=== PATIENT | female | born 1955 | race Caucasian/White ===

== ENCOUNTER → 2016-03-22 | Outpatient (CLI) | payer OTHER ==
[~2016-03-22] MED LIST: AZITTAB PO; CITA10TA4 PO; CITA20TA4 PO; FLUT1INH INH; FLUT50SP45; MONT1TAB3 PO; NAPR1TAB9 PO; OXYC-57 PO; PRED20TA PO; SYMIN160 INH; TIOT1AER2 INH; VNTHFA/IN INH
--- NOTE | 2016-03-23 06:39 | PAP/PSG TECHNICIAN REPORT ---
[facility] Chore Tender Polysomnogram Report Study name: None Report date: 03/23/2016 Study date: 03/22/2016 Referring Physician: Magdaleno Mena Pulmonary Name: CORBY MILAN Interpreting Physician: Magdaleno Mena D.O. Date of : 1955 Chore Tender: Pretty Alcaraz, PSGT. Sex: Female Age: 60 StudyType: PSG Weight: 161 lbs Height: 60 years, Height 5' 1" Neck Circum:15.5 inches BMI: 30.42 Medications: Citalopram 20 mg, Spiriva Handi Haler, Symbicort 160-4.5 mcg, ventilin HFA. Patient History 60 YR. OLD FEMALE IN ROOM # 7, PRESENTS TONIGHT FOR A DIAGNOSTIC TITRATION SLEEP STUDY, DHE HAD A BASELINE DONE 12/19 AND HAD AN AHI OF 15.7. Parameters Monitored NPSG: E1-M2, E2-M1, Fp1-M2, Fp2-M1, F3-M2, F4-M2, F4-M1, C3-M2, C4-M2, C4-M1, O1-M2, O2-M2, O2-M1, T3-M2, T4-M1, P3-M2, P4-M1, CHIN1, CHIN2, HR, EKG, Legs, PFLOW, SNOR, FLOW, CFLOW, Tidal Volume, THOR, ABDO, SpO2, PLTH, CPRESS, ETCO2 Wave, ETCO2, pH Sleep Architecture Sleep Stages Time at Lights Off 9:47:12 PM STAGES Time (min.) TST (%) Time at Lights On 5:36:12 AM Wake 48.0 -- Total Recording Time (TRT) 470.50 min. N1 19.5 5 Total Sleep Period (TSP) 439.0 min. N2 287.5 68 Total Sleep Time (TST) 421.0min. N3 7.0 2 Awake Time 48.0 min. REM 107.0 25 Wake after Sleep Onset 18.0 min. Sleep Efficiency (SE) 90 % Sleep Onset Latency (VAMSHI) 30.0 min. Number of Stage 1 Shifts None Awakenings 6 Stage Changes 40 Number of REM periods 5 REM 107.0 25 REM Latency 141.5 min. NREM 314.0 75 Body Position Analysis Supine Right Left Side Prone Vertical Total Sleep Time (min.) 17.7 245.0 176.0 421.00 0.0 0.0 Total Sleep Time (%) 0% 58% 42% 100 0% N/A% Total Sleep Time REM (min.) 0.0 73.0 34.0 None 0.0 0.0 Total Sleep Time NREM (min.) 0.0 172.0 142.0 None 0.0 0.0 Intermittent Wake (min.) 17.7 3.8 26.5 None 0.0 0.0 Total Sleep Period (%) 0% None None None None None Arousals Myoclonus (PLM) * Events Count Index Events Count Index Spontaneous 56 8 Events Awake (PLMW) 0 0.0 Respiratory 1 0.1 Events Asleep w/ Arousal (PLMA) 9 1.3 PLM 9 1 Events Asleep w/o Arousal (PLMS) 24 3.4 Snoring 4 1 Total Asleep 33 4.7 Total 70 10 Total 33 4 Respiratory Analysis * CA OA MA CH H RERA Total Count 4 1 0 0 6 0 11 Index 0.6 0.1 0.0 0 0.9 0 1.6 Mean Duration 11.3 9.0 0.0 0.00 17.3 0.0 14.3 Longest Duration 14.4 9.0 0.0 0.00 0.0 0.0 28.8 Respiratory Event Summary Total Supine ~Supine Right Left Prone REM NREM Apneas Count 5 N/A 5 2 3 N/A 4 1 Index 0.7 N/A 1 0.5 1.0 N/A 2 0 Hypopneas (4% Desat) Count 6 N/A 6 3 3 N/A 1 5 Index 0.9 N/A 1 0.7 1.0 N/A 0.6 1.0 Apneas & All Hypopneas Count 11 N/A 11 5 6 N/A 5 6 Index 1.6 N/A 2 1 2 N/A 2.8 1.1 Respiratory Events (Staff Midwife+All Hyp+RERA) Count 11 N/A 11 5 6 N/A 5 6 Index 1.6 N/A 2 1.2 2.0 N/A 2.8 1.1 Respiratory Related Arousal Count 1 N/A 1 1 0 N/A 0 1 Index 0.1 N/A 0 0 0 N/A 0 0 Snoring Analysis Supine Right Left Prone REM NREM Total Snore duration 2.4 min Snores count N/A 26 28 N/A 17 37 54 Snore mean duration 2.7 Sec Snores index N/A 6 10 N/A 9.5 7.1 7.7 TST with snoring (%) 0.6% Desaturation Event Summary: Minimum %SpO2 Event Count Mean/Min/Max Duration(sec.) Desaturation Index % Time In Bed > 90 14 25.1 / 10.3 / 53.0 2.5 73.0 86 - 90 3 19.5 / 4.3 / 32.3 1.4 27.0 81 - 85 0 N/A 0.0 0.0 76 - 80 0 N/A 0.0 0.0 71 - 75 0 N/A 0.0 0.0 66 - 70 0 N/A 0.0 0.0 61 - 65 0 N/A 0.0 0.0 56 - 60 0 N/A 0.0 0.0 51 - 55 0 N/A 0.0 0.0 < 50 0 N/A 0.0 0.0 Total REM NREM Awake <50% 0.0 min. 0.0 min. 0.0 min. 0.0 min. 51 - 60% 0.0 min. 0.0 min. 0.0 min. 0.0 min. 61 - 70% 0.0 min. 0.0 min. 0.0 min. 0.0 min. 71 - 80% 0.0 min. 0.0 min. 0.0 min. 0.0 min. 81 - 90% 126.3 min. 24.9 min. 81.0 min. 20.5 min. 91 - 100% 342.2 min. 82.1 min. 232.7 min. 27.4 min. Average 91 91 91 91 Minimum SpO2 87 87 88 87 Desaturation Event Index 2.0 4.5 1.5 0.0 # Desat. Events below 89% 4 4 N/A 0 Time(%) with Saturation below 89% 1.9 0.5 0.3 1.1 Time(min.) with Saturation below 89% 9.1 2.6 1.4 5.1 Time (mins) REM (mins) NREM (mins) % of TST SpO2 Below 90% 11 7 N4 10.7 SpO2 Below 88% 2 0 0 0 Heart Rate Analysis Min (bpm) Max (bpm) Average (bpm) Awake 72 127 84 NREM 70 105 82 REM 68 107 83 Overall 68 107 82 Supplemental O2 Values Minimum O2 level: None Value Start Time End Time Chore Tender Comments PAP Study: MS. Milan slept in the right, and left, positions. No cardiac arrhythmia or PLM's noted. No bruxism noted. CPAP was initiated at +4 CMH2O and up-titrated to an optimal level of +9 CMH2O, which nearly eliminated all respiratory events and snoring. A Small [employer] Simplus, was used during titration Ms. Milan awoke to use the restroom zero times during the night. stated, I did not sleep as well as I do when I am in my own bed. It was harder this time. The final report will be interpreted and signed by a sleep physician. The completed physician report will then be placed in the patient medical record. Pt. stated that is was harder to sleep this time with the mask on. She did seem to do well with the mask and titration, her spirit was good coming into this study she was so excited about feeling better from the treatment. would like to use [employer] for her machine and supplies. Therapy Event: Therapy (cm H20) 4 5 6 7 8 9 Total Time at Pressure (min.) 101.6 60.8 51.2 65.6 153.0 36.7 TST at Pressure (min.) 64.6 60.8 45.2 62.6 151.0 36.7 # Periods 1 1 1 1 1 1 Sleep Onset (min.) 30.0 0.0 0.0 0.0 0.0 0.0 REM Onset (min.) N/A N/A 9.0 N/A 7.2 0.0 Sleep Efficiency % 63 100 88 95 98 100 Wakefulness (%) 36.4 0.0 11.7 4.6 1.3 0.0 Wakefulness (min.) 37.0 0.0 6.0 3.0 2.0 0.0 NREM 1 (%) 6.9 3.3 2.9 3.0 4.6 0.0 NREM 1 (min.) 7.0 2.0 1.5 2.0 7.0 0.0 NREM 2 (%) 56.7 85.2 18.9 92.4 50.8 81.6 NREM 2 (min.) 57.6 51.8 9.7 60.6 77.7 30.0 NREM 3 (%) 0.0 11.5 0.0 0.0 0.0 0.0 NREM 3 (min.) 0.0 7.0 0.0 0.0 0.0 0.0 REM (%) 0.0 0.0 66.4 0.0 43.3 18.4 REM (min.) 0.0 0.0 34.0 0.0 66.3 6.7 # Arousals 5 17 11 4 30 3 Arousal Index 4.6 16.8 14.6 3.8 11.9 4.9 # Snore 4 15 9 3 22 1 Snore Index 3.7 14.8 11.9 2.9 8.7 1.6 AHI 0.0 2.0 5.3 0.0 2.0 0.0 AHI Supine N/A N/A N/A N/A N/A N/A AHI Non-Supine 0.0 2.0 5.3 0.0 2.0 0.0 NREM AHI 0.0 2.0 0.0 0.0 2.8 0.0 REM AHI N/A N/A 7.1 N/A 0.9 0.0 RDI 0.0 2.0 5.3 0.0 2.0 0.0 # Obstructive 0 0 0 0 1 0 # Central Ap 0 0 3 0 1 0 # Mixed 0 0 0 0 0 0 # Hypopneas 0 2 1 0 3 0 RERAS 0 0 0 0 0 0 Total Respiratory Events 0 2 4 0 5 0 Time Below SpO2 89.00% (min.) 0.0 0.0 0.6 0.2 3.1 0.0 Mean NREM SpO2 (%) 91 91 91 90 92 92 Mean REM SpO2 (%) N/A N/A 91 N/A 91 93 Mean Sleep SpO2 (%) 91 91 91 90 92 92 Min NREM SpO2 (%) 89 89 89 88 88 91 Min REM SpO2 (%) N/A N/A 87 N/A 88 92 Position Supine (min.) 0.0 0.0 0.0 0.0 0.0 0.0 Position Non-supine (min.) 64.6 60.8 45.2 62.6 151.0 36.7 LM Index Sleep 0.0 3.0 8.0 3.8 7.9 0.0 LM Index NREM 0.0 3.0 16.1 3.8 6.4 0.0 LM Index REM N/A N/A 5.3 N/A 10.0 0.0 Mean Heart Rate (bpm) 81 78 77 85 85 82 Min Heart Rate (bpm) 72 70 68 77 72 75
--- NOTE | 2016-03-28 14:33 | POLYSOMNOGRAPH REPORT ---
The patient underwent an additional nocturnal polysomnogram on 03/22/2016. She carries a history of obstructive sleep apnea with a recent baseline study done in December 2015 revealing an AHI of 15.7. The BMI is 30, neck diameter of 15.5 inches. This study is done to treat the obstructive sleep apnea with CPAP. Total recording time 470.5 minutes. Total sleep period 439 minutes with total sleep time 421 minutes. Wake after sleep onset was 18 minutes with a sleep efficiency of 90%. Sleep onset was a bit prolonged at 30 minutes. There were 40 sleep stage changes, 5 REM periods with REM latency of 141.5 minutes. Sleep stages included 5% N1, 68% N2, 2% N3 and 25% REM sleep. The patient was placed on CPAP of 4 cm of water pressure and eventually was increased to 9 cm of water pressure. There were 70 arousals during this study, 4 with snoring, 9 with limb movements, 1 with respiratory events and 56 for nonspecific reasons. She had 4 episodes of central apnea, 1 episode of obstructive apnea, 6 episodes of hypopnea with no RERA or mixed apneic episodes noted. The AHI is 1.6. She spent 0.6% of the sleep cycle with snoring. Lowest O2 sat was 87% during REM for a minimal amount of time. No significant arrhythmias or bradycardia noted. No bruxism noted. With treatment, the oxygen saturation is 92% with an AHI of 0. This study suggests the patient responds very well to CPAP with a final setting continuous positive airway pressure of 9 cm of water pressure. The patient was treated with a small [employer] and [employer] Simplus mask.
== END | disposition home or self-care (01) ==
LOC: C.NEUR 21:00
PROVIDERS: ATTEND Internal Medicine Pulmonary Disease
DX: G47.33 Obstructive sleep apnea (adult) (pediatric) (principal); J44.9 Chronic obstructive pulmonary disease, unspecified

== ENCOUNTER 2016-05-23 21:36 | Emergency (ER) | payer OTHER ==
[~2016-05-23] VITALS: Ht 154.9 cm; Wt 81.8 kg
[~2016-05-23 21:36] MED LIST changes: -AZITTAB PO; -CITA20TA4 PO; -FLUT1INH INH; -FLUT50SP45; -PRED20TA PO; -TIOT1AER2 INH; -VNTHFA/IN INH
[2016-05-23 22:16] VITALS: TEMP 37.8; Ht 154.9 cm; Wt 81.8 kg
[2016-05-23 22:42] VITALS: O2SAT 95
[2016-05-23] MEDS ORDERED: ALBUT/IPRATROP 3MG/0.5MG NEB 3 ML VIAL INH STA (22:47)
--- NOTE | 2016-05-23 23:02 | EMERGENCY ROOM VISIT NOTE ---
History First contact with patient: 22:33 Chief Complaint: COUGH Stated Complaint: BAD DRY COUGH, SORE THROAT SINUS PAIN Nursing Triage Summary: Patient arrives from triage c/c of a 3 day history of harsh cough, non-productive and malaise. History of COPD. Patient denies any chest pain. She does report some back pain. History of Present Illness The patient is a 61 year old female former smoker w/ hx of COPD who presents to the Emergency Room with complaints of 3 day hx of progressive dry cough, chest discomfort elicited by cough, soar throat, and 2 episodes nausea/vomiting and headache. Patient tried inhaler at home but obtained minimal relief. She denies fever or chills. Denies change in stool. Review of Systems See HPI for pertinent positives & negatives. A total of 10 systems reviewed and were otherwise negative. Past Medical/Surgical History Medical Problems: (1) Asthma Social History Smoking Status: Former Smoker Marital Status: Housing Status: lives with family Occupation Status: employed Current/Historical Medications Scheduled Azithromycin (Zithromax Z-Villa), 0 PO UD Budesonide/Formoterol Fumarate (Symbicort 160/4.5 Inhaler ), Unknown Dose INH BID Citalopram Hydrobromide (Citalopram Hydrobromide), 1 TAB PO DAILY Montelukast Sodium (Singulair), 10 MG PO DAILY Naproxen (Aleve), 660 MG PO 1 TIME Prednisone (Prednisone), 2 TAB PO DAILY Scheduled PRN Oxycodone/Acetaminophen 5MG/325MG (Percocet 5MG/325MG), 1-2 TABS PO Q6 PRN for Pain Allergies Coded Allergies: Morphine (Verified Allergy, Mild, 04/10/09) Physical Exam Vital Signs Date Time Temp Pulse Resp B/P Pulse Ox O2 Delivery O2 Flow Rate FiO2 05/23/16 22:43 91 20 135/68 94 05/23/16 22:42 95 Room Air 05/23/16 22:16 37.8 100 20 149/79 95 Room Air Physical Exam GENERAL: alert, well appearing, well nourished, no distress, non-toxic EYE EXAM: normal conjunctiva, PERRL and EOM's grossly intact OROPHARYNX: no exudate, no erythema, lips, buccal mucosa, and tongue normal and mucous membranes are moist NECK: supple, no nuchal rigidity, no adenopathy, non-tender LUNGS: scattered Lorne. exp. wheeze HEART: no murmurs, S1 normal and S2 normal ABDOMEN: abdomen soft, non-tender, normo-active bowel sounds, no masses, no rebound or guarding. SKIN: no rashes and no bruising UPPER EXTREMITIES: upper extremities are grossly normal. LOWER EXTREMITIES: No pitting edema. Medical Decision & Procedures Medications Administered Medications (Trade) Dose Ordered Sig/Trent Route Start Time Stop Time Status Last Admin Dose Admin Albuterol/ Ipratropium (Duoneb) 3 ml NOW STAT INH 05/23/16 22:47 05/23/16 22:53 DC 05/23/16 22:58 3 ML Prednisone (PredniSONE TAB) 60 mg NOW STAT PO 05/23/16 22:47 05/23/16 22:53 DC 05/23/16 22:59 60 MG Medical Decision 61 yo F former smoker w/ hx of COPD p/w 3 day hx cough, soar throat, n/v, stark. febrile at 37.8, normal O2 saturation with lorne wheeze on exam. Differential diagnoses includes but is not limited to pneumonia, bronchitis, COPD/Asthma exacerbation, pneumothorax, pulmonary embolism, congestive heart failure, acute coronary syndrome Acute Bronchitis with COPD exacerbation -Given nebulizer treatment, Prednisone 60 mg x1, -CXR: preliminary read by me: no acute findings -Given dose of Azithromycin 500 mg -Discharged home on Prednisone 20 mg BID x 4 days, Albuterol Inhaler as needed, Z-Villa -Follow up with PCP within 1-2days Impression Primary Impression: Acute bronchitis Additional Impression: COPD exacerbation Departure Information Dispostion Home / Self-Care Condition GOOD Prescriptions Prednisone (Prednisone) 20 Mg Tab 2 TAB PO DAILY for 4 Days, #8 TAB Prov: Nikhil Alfaro D.O. 05/23/16 Azithromycin (ZITHROMAX Z-VILLA) 250 Mg Tab 0 PO UD, #1 PKT 2 TABS DAY 1, THEN 1 TAB DAILY FOR 4 DAYS Prov: Nikhil Alfaro D.OLaura 05/23/16 Referrals Annel Shaffer PA-C (PCP) Patient Instructions [facility] Resident Tracking Resident Involvement: Resident Care Provided Care Provided: Adult Hospital Medicine Problem Qualifiers Primary Impression: Acute bronchitis Bronchitis organism: unspecified organism Qualified Codes: J20.9 - Acute bronchitis, unspecified
[2016-05-23 23:19] VITALS: BP 127/97
[2016-05-23 23:30] VITALS: PULSE 105; O2SAT 98
[2016-05-23] MEDS ORDERED: PRED20TA PO (23:32)
[2016-05-23] MEDS ORDERED: AZITTAB PO (23:32)
--- NOTE | 2016-05-23 23:42 | EMERGENCY ROOM VISIT NOTE ---
History Report prepared by Debbi: Judy Reynolds Under the Supervision of: Dr. Nikhil Alfaro D.O. First contact with patient: 22:44 Chief Complaint: COUGH Stated Complaint: BAD DRY COUGH, SORE THROAT SINUS PAIN Nursing Triage Summary: Patient arrives from triage c/c of a 3 day history of harsh cough, non-productive and malaise. History of COPD. Patient denies any chest pain. She does report some back pain. History of Present Illness The patient is a 61 year old female who presents to the Emergency Room with complaints of a worsening cough for the past 3 days. She states the cough is "dry and harsh". She has a history of COPD and is a former smoker. She also admits to some burning chest pain with the coughing, as well as shortness of breath,a headache and some recent nausea and vomiting. She also complains of some back pain. 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 A total of 10 systems reviewed and were otherwise negative. Past Medical & Surgical Medical Problems: (1) Asthma Social History Smoking Status: Current Every Day Smoker Alcohol Use: occasionally Drug Use: none Marital Status: Housing Status: lives with family Occupation Status: employed Current/Historical Medications Scheduled Azithromycin (Zithromax Z-Villa), 0 PO UD Budesonide/Formoterol Fumarate (Symbicort 160/4.5 Inhaler ), Unknown Dose INH BID Citalopram Hydrobromide (Citalopram Hydrobromide), 1 TAB PO DAILY Montelukast Sodium (Singulair), 10 MG PO DAILY Naproxen (Aleve), 660 MG PO 1 TIME Prednisone (Prednisone), 2 TAB PO DAILY Scheduled PRN Oxycodone/Acetaminophen 5MG/325MG (Percocet 5MG/325MG), 1-2 TABS PO Q6 PRN for Pain Allergies Coded Allergies: Morphine (Verified Allergy, Mild, 04/10/09) Physical Exam Vital Signs Date Time Temp Pulse Resp B/P Pulse Ox O2 Delivery O2 Flow Rate FiO2 05/23/16 22:43 91 20 135/68 94 05/23/16 22:42 95 Room Air 05/23/16 22:16 37.8 100 20 149/79 95 Room Air Physical Exam CONSTITUTIONAL/VITAL SIGNS: Reviewed / noted above. GENERAL: Non-toxic in appearance. INTEGUMENTARY: Warm, dry, and [place]. HEAD: Normocephalic. EYES: without scleral icterus or trauma. ENT/OROPHARYNX: clear and moist. LYMPHADENOPATHY/NECK: Is supple without lymphadenopathy or meningismus. RESPIRATORY: Expiratory wheezing bilaterally. CARDIOVASCULAR: Regular rate and rhythm. GI/ABDOMEN: Soft and nontender. No organomegaly or pulsatile mass. No rebound or guarding. Normal bowel sounds. EXTREMITIES: Warm and well perfused. BACK: No CVA tenderness. NEUROLOGICAL: Intact without focal deficits. PSYCHIATRIC: normal affect. MUSCULOSKELETAL: Normally developed with good muscle tone. Medical Decision & Procedures ER Provider Diagnostic Interpretation: This X-Ray was reviewed and interpreted by myself as we do not have a radiologist on staff overnight. CHEST X-RAY No acute infiltrate or disease seen on X-Ray. Medications Administered Medications (Trade) Dose Ordered Sig/Trent Route Start Time Stop Time Status Last Admin Dose Admin Albuterol/ Ipratropium (Duoneb) 3 ml NOW STAT INH 05/23/16 22:47 05/23/16 22:53 DC 05/23/16 22:58 3 ML Prednisone (PredniSONE TAB) 60 mg NOW STAT PO 05/23/16 22:47 05/23/16 22:53 DC 05/23/16 22:59 60 MG ED Course 2235: Previous medical records were reviewed. The patient was evaluated in room B3. A complete history and physical examination was performed. 2247: Prednisone 60 mg PO, DuoNeb 3 ml INH. 2330: I reevaluated the patient. She is feeling better. I discussed her results and discharge instructions and she verbalized complete understanding and agreement. Medical Decision Etiologies such as infections, reactive airway disease, pneumonia, pneumothorax , COPD, CHF, cardiac ischemia, pulmonary embolism, musculoskeletal, gastrointestinal, as well as others were entertained. This is a 61-year-old female who presents to the ED with a chief complaint of a cough for the past 3 days as well as some shortness of breath. The patient does report a history of COPD. She states that her cough is nonproductive. She denies any fevers or recent illness. The patient has no additional symptoms. Her physical exam reveals some respiratory wheezing. Her oxygen saturation are 95%. She is no acute distress. Chest x-ray did not show an obvious infiltrate. Because the patient's history and her symptoms, she was started on Zithromax by mouth here. She was also started on prednisone and given a nebulizer treatment. Her symptoms did improve. She was discharged on prednisone and Zithromax. The patient has inhalers at home. She'll return for any worsening or new symptoms and otherwise follow up with her PCP. Impression Primary Impression: Acute bronchitis Additional Impression: Chronic obstructive pulmonary disease Scribe Attestation The scribe's documentation has been prepared under my direction and personally reviewed by me in its entirety. I confirm that the note above accurately reflects all work, treatment, procedures, and medical decision making performed by me. Departure Information Dispostion Home / Self-Care Prescriptions Prednisone (Prednisone) 20 Mg Tab 2 TAB PO DAILY for 4 Days, #8 TAB Prov: Nikhil Alfaro D.O. 05/23/16 Azithromycin (ZITHROMAX Z-VILLA) 250 Mg Tab 0 PO UD, #1 PKT 2 TABS DAY 1, THEN 1 TAB DAILY FOR 4 DAYS Prov: Nikhil Alfaro D.O. 05/23/16 Referrals Annel Shaffer PA-C (PCP) Patient Instructions My [facility] Problem Qualifiers Primary Impression: Acute bronchitis Bronchitis organism: unspecified organism Qualified Codes: J20.9 - Acute bronchitis, unspecified Additional Impression: Chronic obstructive pulmonary disease COPD type: unspecified COPD Qualified Codes: J44.9 - Chronic obstructive pulmonary disease, unspecified
[2016-05-23] MEDS ORDERED: AZITHROMYCIN 250 MG TAB PO ONE (23:45)
--- NOTE | 2016-05-24 06:48 | DIAGNOSTIC IMAGING REPORT ---
CHEST 2 VIEWS ROUTINE CLINICAL HISTORY: SOB, Cough dyspnea COMPARISON STUDY: 07/17/2014 FINDINGS: Increased prominence of the basilar lung markings bilaterally. Mid and upper lungs are considered clear. No evidence for cardiac enlargement. IMPRESSION: Bibasilar parenchymal infiltrates Electronically signed by: Parminder Cardona M.D. 05/24/2016 6:46 AM Dictated Date/Time: 05/24/2016 6:46 AM
[2016-08-03] MEDS ORDERED: FLUT50SP45 (08:45)
[2016-08-03] MEDS ORDERED: TIOT1AER2 INH (08:45)
[2016-08-03] MEDS ORDERED: VNTHFA/IN INH (08:45)
[2016-08-03] MEDS ORDERED: CITA20TA4 PO (08:45)
[2016-08-03] MEDS ORDERED: FLUT1INH INH (08:45)
== END 2016-05-23 23:56 | disposition home or self-care (01) ==
LOC: C.EDB 21:37
DX: J44.0 Chronic obstructive pulmonary disease with (acute) lower respiratory infection (principal); J45.909 Unspecified asthma, uncomplicated; F17.200 Nicotine dependence, unspecified, uncomplicated; Z79.899 Other long term (current) drug therapy; Z87.891 Personal history of nicotine dependence; Z88.5 Allergy status to narcotic agent

== ENCOUNTER → 2016-06-01 | Outpatient (CLI) | payer OTHER ==
[~2016-06-01] MED LIST changes: +AZITTAB PO; +CITA20TA4 PO; +FLUT1INH INH; +FLUT50SP45; +TIOT1AER2 INH; +VNTHFA/IN INH
[2016-06-01 12:41] LABS: BASO % 0.1 %; BASO ABS # 0.01 K/uL (0-0.2); COMPLETE YES; EOS % 0.1 %; HEMATOCRIT 43.1 % (37-47); IG% 0.6 %; LYMPH % 21.5 %; LYMPH ABS # 2.69 K/uL (1.2-3.4); MANUAL MICROSCOPIC REQUIRED? NO; MEAN CELL VOLUME 83.9 fL (80-100); MEAN CORPUSCULAR HEMOGLOBIN 27.8 pg (25-34); MEAN CORPUSCULAR HGB CONC 33.2 g/dl (32-36); MEAN PLATELET VOLUME 10.8 fL (7.4-10.4); MONO % 6.5 %; NEUT % 71.2 %; PLATELET COUNT 228 K/uL (130-400); RED BLOOD COUNT 5.14 M/uL (4.2-5.4); REVIEW REQ? NO; URINE APPEARANCE TURBID (CLEAR); URINE BILIRUBIN NEG (NEG); URINE COLOR YELLOW; URINE EPITHELIAL CELL AUTO >30 /lpf (0-5); URINE NITRITE NEG (NEG); URINE PH 5.5 (4.5-7.5); URINE SPECIFIC GRAVITY 1.028 (1.000-1.030); UROBILINOGEN NEG (NEG); WHITE BLOOD COUNT 12.54 K/uL (4.8-10.8); ZZUR CULT IF INDIC CLEAN CATCH NO
[2016-06-01 13:10] LABS: ALT/SGPT 55 U/L (12-78); AST/SGOT 26 U/L (15-37); BLOOD UREA NITROGEN 11 mg/dl (7-18); BUN/CREATININE RATIO 14.1 (10-20); CALCIUM 8.8 mg/dl (8.5-10.1); CARBON DIOXIDE 24 mmol/L (21-32); CHLORIDE 108 mmol/L (98-107); CREATININE 0.79 mg/dl (0.60-1.20); GLUCOSE 123 mg/dl (70-99); POTASSIUM 3.7 mmol/L (3.5-5.1); SODIUM 140 mmol/L (136-145)
[2016-06-01 13:22] LABS: ALB/GLOB RATIO 0.9 (0.9-2); ALKALINE PHOSPHATASE 58 U/L (45-117); CHOLESTEROL 203 mg/dl (0-200); CHOLESTEROL/HDL RATIO 2.5; HDL CHOLESTEROL 80 mg/dl; LDL CHOLESTEROL CALCULATED 104 mg/dl; THYROID STIMULATING HORMONE 0.523 uIu/ml (0.300-4.500); TRIGLYCERIDES 93 mg/dl (0-150); VERY LOW DENSITY LIPOPROT CALC 19 mg/dl
== END | disposition home or self-care (01) ==
LOC: C.LABBFT 07:48
PROVIDERS: ATTEND Internal Medicine
DX: J44.9 Chronic obstructive pulmonary disease, unspecified (principal); Z13.6 Encounter for screening for cardiovascular disorders

== ENCOUNTER → 2016-06-02 | Outpatient (CLI) | payer OTHER ==
--- NOTE | 2016-06-02 11:09 | DIAGNOSTIC IMAGING REPORT ---
ABDOMINAL ULTRASOUND COMPLETE HISTORY: Pain. Nausea. R11.0 [id number]. COMPARISON: 12/07/2006 FINDINGS: Pancreas: The pancreas demonstrates a normal echotexture. Liver: Unremarkable. Gallbladder: No gallbladder wall thickening. No gallstones. CBD: 4 mm Kidneys: No hydronephrosis. Spleen: Normal in size. Aorta: Normal in caliber. IVC: Patent. IMPRESSION: Normal study. No change from the prior exam. Electronically signed by: Parminder Cardona M.D. 06/02/2016 11:08 AM Dictated Date/Time: 06/02/2016 11:01 AM
== END | disposition home or self-care (01) ==
LOC: C.ULTR 10:24
PROVIDERS: ATTEND Internal Medicine
DX: R11.0 Nausea (principal)

== ENCOUNTER → 2016-06-20 | Outpatient (CLI) | payer OTHER ==
[~2016-06-20] MED LIST changes: -AZITTAB PO; +CYCL10TA6 PO; +DICL50TA3 PO; +DTRSR/2 PO; +HYDR-5688 PO; +IBUP-1450 PO; +OMEP20TA PO; -OXYC-57 PO
--- NOTE | 2016-06-20 07:33 | DIAGNOSTIC IMAGING REPORT ---
CT (CHEST) THORAX WITHOUT WITH COMPUTER-AIDED DETECTION (CAD) CLINICAL HISTORY: LOW DOSE LUNG SCREEN COMPARISON STUDY: Chest 05/23/2016. CT DOSE: 97.93 mGy.cm TECHNIQUE: Low-dose helical CT was acquired without intravenous contrast from lung apices to bases and reconstructed at 2.5 mm every 2 mm. CAD was utilized for this study. FINDINGS: The central airways are patent. Moderate emphysema. No pleural effusions. No pneumothorax. A few bibasilar linear densities likely represent subsegmental atelectasis. No mediastinal or hilar lymphadenopathy. Normal caliber thoracic aorta. The heart is normal in size. The unenhanced liver, spleen, and adrenal glands are unremarkable. IMPRESSION: Moderate emphysema. No suspicious pulmonary nodules. CAD FINDINGS: Overall Lung RADS Category: 1 Lung RADS Management Recommendation: Lung-RADS 1: Continue annual screening in 12 months. Lung RADS Follow Up Date: 2017-06-20 Lung RADS Nodule ID: Electronically signed by: Gabo Hernandez M.D. 06/20/2016 7:31 AM Dictated Date/Time: 06/20/2016 7:26 AM
== END ==
LOC: C.CTS 06:29
PROVIDERS: ATTEND Internal Medicine
DX: Z87.891 Personal history of nicotine dependence (principal)

== ENCOUNTER → 2016-09-01 | Outpatient (CLI) | payer OTHER ==
[~2016-09-01] MED LIST changes: -CITA10TA4 PO; -CYCL10TA6 PO; -DICL50TA3 PO; -DTRSR/2 PO; -HYDR-5688 PO; -IBUP-1450 PO; -OMEP20TA PO; -SYMIN160 INH
--- NOTE | 2016-09-02 12:31 | MAMMOGRAPHY REPORT ---
BILATERAL DIGITAL SCREENING MAMMOGRAM TOMOSYNTHESIS WITH CAD: 09/01/2016 CLINICAL HISTORY: Routine screening. TECHNIQUE: Breast tomosynthesis in addition to standard 2D mammography was performed. Current study was also evaluated with a Computer Aided Detection (CAD) system. COMPARISON: Comparison is made to exams dated: 07/14/2015 mammogram, 01/14/2015 mammogram, 01/02/2015 mammogram, 03/06/1999 mammogram, and 07/21/2015 mammogram - [facility]. BREAST COMPOSITION: There are scattered areas of fibroglandular density in both breasts. FINDINGS: No suspicious masses, calcifications, or areas of architectural distortion are noted in ei ther breast. There has been no significant interval change compared to prior exams. A biopsy marker clip is again noted within the right upper outer quadrant. IMPRESSION: ACR BI-RADS CATEGORY 2: BENIGN There is no mammographic evidence of malignancy. A 1 year screening mammogram is recommended. The pa tient will receive written notification of the results. Approximately 10% of breast cancers are not detected with mammography. A negative mammographic report should not delay biopsy if a clinically suggestive mass is present. Frances Moss M.D. /:09/01/2016 15:19:16 Profile Stitching Machine Operator: Tracey DEVI(Yandy)(Tiana), [facility] letter sent: Normal 1/2 BI-RADS Code: ACR BI-RADS Category 2: Benign
== END | disposition home or self-care (01) ==
LOC: C.MAMM 13:20
PROVIDERS: ATTEND Internal Medicine
DX: Z12.31 Encounter for screening mammogram for malignant neoplasm of breast (principal)

== ENCOUNTER → 2016-09-23 | Outpatient (CLI) | payer OTHER ==
[2016-09-23 17:02] LABS: URINE APPEARANCE CLEAR (CLEAR); URINE BILIRUBIN NEG (NEG); URINE COLOR YELLOW; URINE NITRITE NEG (NEG); UROBILINOGEN NEG (NEG); ZZUR CULT IF INDIC CLEAN CATCH NO
[2016-09-23 17:04] LABS: BASO % 0.5 %; BASO ABS # 0.03 K/uL (0-0.2); COMPLETE YES; EOS % 1.1 %; HEMATOCRIT 43.5 % (37-47); IG% 0.2 %; LYMPH % 39.9 %; LYMPH ABS # 2.65 K/uL (1.2-3.4); MANUAL MICROSCOPIC REQUIRED? NO; MEAN CORPUSCULAR HEMOGLOBIN 28.2 pg (25-34); MEAN CORPUSCULAR HGB CONC 32.4 g/dl (32-36); MEAN PLATELET VOLUME 11.8 fL (7.4-10.4); MONO % 7.5 %; NEUT % 50.8 %; PLATELET COUNT 220 K/uL (130-400); REVIEW REQ? NO; WHITE BLOOD COUNT 6.64 K/uL (4.8-10.8)
[2016-09-23 17:27] LABS: ALT/SGPT 36 U/L (12-78); BLOOD UREA NITROGEN 20 mg/dl (7-18); BUN/CREATININE RATIO 24.8 (10-20); CALCIUM 9.4 mg/dl (8.5-10.1); CARBON DIOXIDE 26 mmol/L (21-32); CHLORIDE 106 mmol/L (98-107); CREATININE 0.81 mg/dl (0.60-1.20); GLUCOSE 109 mg/dl (70-99); POTASSIUM 3.7 mmol/L (3.5-5.1); SODIUM 138 mmol/L (136-145)
[2016-09-23 17:29] LABS: ALB/GLOB RATIO 1.1 (0.9-2); ALKALINE PHOSPHATASE 57 U/L (45-117); AST/SGOT 26 U/L (15-37)
[2016-09-24 07:18] LABS: ESTIMATED AVERAGE GLUCOSE 128 mg/dl; HA1C FLAG Normal (Normal)
--- NOTE | 2016-09-30 14:05 | CODING QUERY MEDICAL NECESSITY ---
CQSUPPORTING DIAGNOSIS NEEDED A supporting diagnosis is required for the test/procedure performed on this patient in order for us to be reimbursed by the patient's insurance. Please provide a supporting diagnosis for the following test/procedure listed below next to the test name along with your signature. *If there is no additional diagnosis for this patient that would support the following test/procedure please document that below next to the test/procedure. Test(s)/Procedure(s) that require a supporting diagnosis: DOS 09/23/16 GLYCATED HEMOGLOBIN TEST Provider Signature: Date: Thank you Jennifer Tatum Health Information Management Once completed, please kindly fax back to [phone] For questions please call [phone]
== END | disposition home or self-care (01) ==
LOC: C.LABBFT 10:42
PROVIDERS: ATTEND Internal Medicine
DX: J44.9 Chronic obstructive pulmonary disease, unspecified (principal); R32 Unspecified urinary incontinence; R73.09 Other abnormal glucose

== ENCOUNTER 2017-01-20 08:17 | Emergency (ER) | payer OTHER, BC ==
[~2017-01-20] VITALS: Ht 154.9 cm; Wt 76.7 kg
[~2017-01-20 08:17] MED LIST changes: +DICL50TA3 PO; +DTRSR/2 PO; +IBUP-1450 PO; +OMEP20TA PO
[2017-01-20 08:21] VITALS: TEMP 36.5; Ht 154.9 cm; Wt 76.7 kg
--- NOTE | 2017-01-20 09:23 | DIAGNOSTIC IMAGING REPORT ---
L-SPINE MIN 4 VIEWS ROUTINE CLINICAL HISTORY: 61 years-old Female presenting with EVAL LBP. TECHNIQUE: Frontal, bilateral oblique, lateral, and coned in lateral views of the lumbar spine were obtained. COMPARISON: 12/04/2015. FINDINGS: Minimal dextrocurvature of the lumbar spine. Normal lumbar lordosis. Vertebral bodies maintain normal height and alignment. Intervertebral disc spaces preserved. Anterior osteophytosis noted at L2-3 and to a lesser degree at L3-4. No radiographic evidence of osseous neural foraminal narrowing or acute fracture or subluxation. Moderate stool burden in the colon. No bowel obstruction. No gross pneumoperitoneum. IMPRESSION: No radiographic evidence of acute osseous injury. Mild degenerative change. Electronically signed by: Cory Candelario M.D. 01/20/2017 9:21 AM Dictated Date/Time: 01/20/2017 9:19 AM
[2017-01-20] MEDS ORDERED: CYCL10TA6 PO (09:59)
[2017-01-20] MEDS ORDERED: HYDR-5688 PO (09:59)
--- NOTE | 2017-01-20 10:01 | EMERGENCY ROOM VISIT NOTE ---
ED Visit Note First contact with patient: 08:28 CHIEF COMPLAINT: Low back pain 2 weeks HISTORY OF PRESENT ILLNESS: Patient is a 61-year-old white female who presents to the emergency department for evaluation of low back pain 2 weeks. She states that she has had pain in her low back since lifting heavy tables at work about 2 weeks ago. She denies any specific injury occurring while she was lifting tables, but noted bilateral low back pain without radiation that started the following morning. She states the tables for roughly 100-150 pounds. She was lifting them with the help of a coworker. She did not feel a snap, pop, nor sustain any direct trauma to the low back. When she woke up the following morning, she was very stiff and sore. She states she couldn't stand up straight, and had difficulty getting out of bed due to the discomfort. She applied heat to the back and took ibuprofen through the weekend. She notified work of her symptoms when she returned to the next business day. She was sent to occupational health, reports that she saw RADHA Hobbs with [facility] on Monday, 01/10. She was referred to physical therapy. She has had 2 sessions of physical therapy this week, it yesterday, and 2 days prior to that. She states that she did stretching exercises, and they did stim. She has had worsening low back pain in the last 2 days. She describes pain across her entire low back, the right worse than the left. There is no radiation into her buttocks, hips or legs. Pain is worse with movement. She rates her discomfort a 10/10 presently. She denies any bowel or bladder incontinence or saddle anesthesias. No numbness, tingling or weakness into the lower extremities. No prior history of back problems or injuries. She was prescribed Voltaren 50 mg twice a day. REVIEW OF SYSTEMS: Review of systems as per HPI. All other systems reviewed were negative. 10 systems reviewed. PMH: Electronic medical records are reviewed and summarized as above/below. See Problem List. SOCIAL HISTORY: Patient lives at home with her . 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 Former smoker. PHYSICAL EXAM: Vital Signs: Reviewed Nurse's notes. CONSTITUTIONAL: Patient is an uncomfortable-appearing 61-year-old white female who is awake and alert and in moderate distress due to her back pain. Who is awake and alert and laying supine on the gurney in moderate distress due to their back pain. There is significant discomfort with position changes. CARDIOVASCULAR: Regular rate and rhythm. Peripheral pulses easily palpable. RESPIRATORY: Breath sounds equal and clear to auscultation without wheezes, rales, or rhonchi heard. Full and equal chest expansion without accessory muscle use or retractions. ABDOMEN: Bowel sounds are present. Abdomen is soft, nontender and nondistended. INTEGUMENTARY: No lesions or rash, normal skin turgor. LYMPH: No lymphadenopathy. SPINE: Examination of the patient's back does not demonstrate any ecchymosis, abrasions or outward signs of trauma. No erythema, increased warmth or induration. She has Physio-tape in place along the lumbar spine. Patient has slight midline discomfort to palpation over the low lumbar spine. She has slight paraspinous muscle tenderness bilaterally, primarily on the right, without focal spasm. There is no pain over the SI joint or the sciatic notch. She does have discomfort out the bilateral PSIS, right worse than left. She has increased pain with range of motion including rotation and flexion. EXTREMITIES: Leg lengths are symmetrical. Negative logroll bilaterally. Normal strength including dorsi-flexion and plantar flexion of the great toes and ankles and flexion and extension of the knees and flexion of the hips. Negative bilateral straight leg raise testing. Lower extremity DTRs are equal and symmetrical bilaterally. Distal pulses are easily palpable. Sensation light touch is intact over the lower extremities bilaterally. EMERGENCY DEPARTMENT COURSE: The patient was seen and evaluated as above. Her old records were reviewed. Lumbar spine x-rays were obtained. Mild degenerative changes were noted. Continued conservative care measures were discussed with the patient. She was advised to take an NSAID in some form, whether it be ibuprofen or Voltaren that she had previously been prescribed. She was also given prescriptions for Flexeril and [place] to use as needed for pain and muscle spasms. She has had increased pain in the last couple of days, in the setting of recently initiating physical therapy, which may be in the short-term, worsening her symptoms. She has otherwise had low back pain after lifting injury about 2 weeks ago without radicular symptoms. I do not suspect acute cord compression, cauda equina syndrome or compressive neuropathy. She does not have any bowel or bladder incontinence. She was advised to follow-up with his compensation as she has scheduled next Monday and to continue physical therapy as scheduled. She was given a note to be out of work until she is rechecked by occupational health next week. Medication reconciliation: I attest that I have personally reviewed the patient' s current medication list. Blood pressure screening : Patient was found to have normal blood pressure on screening and does not require follow-up. Patient was reviewed in the [facility] Prescription Drug Monitoring Program, and there were no red flags noted. L-SPINE MIN 4 VIEWS ROUTINE CLINICAL HISTORY: 61 years-old Female presenting with EVAL LBP. TECHNIQUE: Frontal, bilateral oblique, lateral, and coned in lateral views of the lumbar spine were obtained. COMPARISON: 12/04/2015. FINDINGS: Minimal dextrocurvature of the lumbar spine. Normal lumbar lordosis. Vertebral bodies maintain normal height and alignment. Intervertebral disc spaces preserved. Anterior osteophytosis noted at L2-3 and to a lesser degree at L3-4. No radiographic evidence of osseous neural foraminal narrowing or acute fracture or subluxation. Moderate stool burden in the colon. No bowel obstruction. No gross pneumoperitoneum. IMPRESSION: No radiographic evidence of acute osseous injury. Mild degenerative change. Problem List Medical Problems: (1) Acute bronchitis Status: Resolved (2) Asthma Status: Chronic (3) Back strain Status: Resolved (4) Chronic obstructive pulmonary disease Status: Chronic (5) COPD exacerbation Status: Resolved (6) Cough Status: Resolved (7) Spasm of back muscles Status: Resolved Current/Historical Medications Scheduled Citalopram Hydrobromide (Citalopram Hydrobromide), 1 TAB PO QAM Diclofenac (Voltaren), 50 MG PO BID Fluticasone Furoate-Vilanterol (Breo Ellipta), 1 PUFF INH QAM Fluticasone Propionate (Nasal) (Allergy Nasal [place] 24 Ho), 1 DOSE NA QAM Montelukast Sodium (Singulair), 10 MG PO QAM Naproxen (Aleve), 220 MG PO DAILY Omeprazole (Omeprazole), 1 TAB PO QAM Tiotropium [place] (Spiriva Respimat), 1 PUFF INH QAM Tolterodine Tartrate (Detrol LA), 1 CAP PO BID Scheduled PRN Albuterol Hfa (Ventolin Hfa), 2-4 PUFFS INH Q6H PRN for Shortness of Breath Cyclobenzaprine Hcl (Flexeril), 10 MG PO TID PRN for Muscle Spasms Hydrocodone/Acetaminophen 5MG/325MG ([place] 5MG/325MG), 1-2 TABLETS PO Q4 PRN for Pain Ibuprofen (Motrin), 600 MG PO Q6H PRN for Pain Allergies Coded Allergies: Morphine (Verified Allergy, Mild, SWELLING OF THROAT, RED RASH, 01/20/17) Vital Signs Date Time Temp Pulse Resp B/P (MAP) Pulse Ox O2 Delivery O2 Flow Rate FiO2 01/20/17 10:10 68 18 147/77 98 01/20/17 08:21 36.5 69 17 145/81 97 Room Air Departure Information Impression Primary Impression: Strain of lumbar region Additional Impression: Work related injury Prescriptions Hydrocodone/Acetaminophen 5MG/325MG ([place] 5MG/325MG) Tab 1-2 TABLETS PO Q4 Y for Pain, #20 TAB For Initial Treatment Prov: Shirin Allen PA 01/20/17 Cyclobenzaprine Hcl (FLEXERIL) 10 Mg Tab 10 MG PO TID Y for Muscle Spasms, #30 TAB Prov: Shirin Allen PA 01/20/17 Referrals Zheng Brown M.D. (PCP) Patient Instructions [facility] Additional Instructions Cyclobenzaprine (Flexeril) 10 mg: Take 1 pills 3 times daily as needed for muscle spasms.. Avoid alcohol, operating machinery or dangerous equipment, working on ladders or roofs, DRIVING, or situations where being under the influence may be dangerous. Hydrocodone/Acetaminophen ([place]) 5/325 mg: Take 1-2 pills every four hours for breakthrough pain. Avoid alcohol, operating machinery or dangerous equipment, working on ladders or roofs, DRIVING, or situations where being under the influence may be dangerous. It is recommended to use an [id number] stool softener such as Colace, 100mg twice daily while taking this medication to avoid constipation. Continue Voltaren or Ibuprofen as previously advised. Acetaminophen(Tylenol) may be used for fever or pain. Use 1000mg every six hours as needed. Avoid using more than 3000mg in a 24 hour period. This medication can be taken if you need to drive, work, or perform activities which may be dangerous when taking narcotic pain medication. Rest and avoid heavy lifting until your symptoms resolve and then gradually return to full activity. A good rule of thumb is if it hurts your back to perform a certain activity, then it should be avoided until you are healthy again. A heating pad, warm compresses, or a hot shower may help with tight muscles and can be done several times a day as needed. Continue Physical Therapy. Continue current medications. Return to the ER immediately for any numbness, tingling, severe pain, loss of control of your bowels or bladder, inability to walk, or as needed. Follow up with your worker's compensation physician next week as scheduled for a recheck of your current condition. Problem Qualifiers
[2017-01-20 10:10] VITALS: BP 147/77; PULSE 68; O2SAT 98
== END 2017-01-20 10:12 | disposition home or self-care (01) ==
LOC: C.EDB 08:19
DX: S39.012A Strain of muscle, fascia and tendon of lower back, initial encounter (principal); X50.0XXA Overexertion from strenuous movement or load, initial encounter; Y99.0 Civilian activity done for income or pay; Y93.89 Activity, other specified; Y92.199 Unspecified place in other specified residential institution as the place of occurrence of the external cause; Z87.891 Personal history of nicotine dependence; J45.909 Unspecified asthma, uncomplicated; Z79.899 Other long term (current) drug therapy

== ENCOUNTER → 2017-02-06 | Day surgery (SDC) | payer BC, OTHER ==
[2017-01-19 15:21] VITALS: Ht 154.9 cm; Wt 79.1 kg
[~2017-02-06] VITALS: Ht 154.9 cm; Wt 79.1 kg
[~2017-02-06] MED LIST changes: +HYDR-5688 PO; +LIDOCAINE HCL 2% 2 ML VIAL (20MG/ML) ONE; +MIDAZOLAM HCL 1 MG/ML 2ML VIAL ONE; +ONDANSETRON INJ 2 MG/ML 2 ML VIAL ONE; +PROPOFOL IV EMULSION 10 MG/ML 20 ML VIAL IV ONE; +SODIUM CHLORIDE 0.9% 500ML 500 ML IV ONE
--- NOTE | 2017-02-06 12:34 | Endo History and Physical ---
History & Physical Date of Service: Feb 06, 2017. Chief Complaint: Screening Referring Physician: Dr. Brown History of Present Illness 61 yo CF who presents for screening colonoscopy. Past Surgical History Hx Cardiac Surgery: No Hx Internal Defibrillator: No Hx Pacemaker: No Hx Abdominal Surgery: No Hx Post-Op Nausea and Vomiting: No Hx Cancer Surgery: No Hx Thoracic Surgery: No Hx Orthopedic: Yes (RT ANKLE ORIF, RT RCR) Hx Urinary Tract Surgery: No Family History None Social History Smoking Status: Former Smoker Hx Substance Use: No Hx Alcohol Use: No Allergies Coded Allergies: Morphine (Verified Allergy, Mild, SWELLING OF THROAT, RED RASH, 01/20/17) Current Medications Reported Home Medications Medications Dose Route/Sig Max Daily Dose Days Date Category Dose Instructions [place] 5MG/325MG (Acetaminophen/Hydrocodone Bitart) Tab 1-2 Tablets PO Q4 PRN 01/20/17 Rx For Initial Treatment Voltaren (Diclofenac Sodium) 50 Mg Tabec 50 Mg PO BID 01/19/17 Reported Motrin (Ibuprofen) 600 Mg Tab 600 Mg PO Q6H PRN 01/19/17 Reported TAKE WITH FOOD Detrol LA (Tolterodine Tartrate) 2 Mg Capcr 1 Cap PO BID 01/19/17 Reported Omeprazole 20 Mg Tab 1 Tab PO QAM 01/19/17 Reported Allergy Nasal [place] 24 Ho (Fluticasone Propionate (Nasal)) 50 Mcg/Act Spr 1 Dose NA QAM 08/03/16 Reported Ventolin Hfa (Albuterol) 200 Puffs/62401 Mcg Aers 2-4 Puffs INH Q6H PRN 08/03/16 Reported Spiriva Respimat (Tiotropium [place]) 1.25 Mcg/Act Aer 1 Puff INH QAM 08/03/16 Reported Breo Ellipta (Fluticasone Furoate-Vilanterol) 1 Inh Inh 1 Puff INH QAM 08/03/16 Reported Citalopram Hydrobromide 20 Mg Tab 1 Tab PO QAM 08/03/16 Reported Aleve (Naproxen) 220 Mg Tab 220 Mg PO DAILY 12/04/15 Reported Singulair (Montelukast Sodium) 10 Mg Tab 10 Mg PO QAM 12/04/15 Reported Vital Signs Weight (Kilograms): 79.09 Height (Feet): 5 Height (Inches): 1 Physical Exam General Appearance: WD/WN, no apparent distress Respiratory/Chest: Auscultation: breath sounds normal Cardiovascular: Heart Auscultation: RRR Abdomen: Bowel Sounds: normal Inspection & Palpation: soft, non-distended, no tenderness, guarding & rebound Assessment and Plan Assessment: 61 yo CF who presents for screening colonoscopy. Plan: Proceed with colonoscopy.
--- NOTE | 2017-02-06 13:33 | Discharge Instructions ---
Endoscopy Patient Instructions Date / Procedure(s) Performed Feb 06, 2017. Colonoscopy Allergy Information Coded Allergies: Morphine (Verified Allergy, Mild, SWELLING OF THROAT, RED RASH, 01/20/17) Discharge Date / Findings Feb 06, 2017. Colon polyp Internal hemorrhoids Medication Instructions Stopped Medication(s): Voltaren LD 02/04/17 OK to resume all medications today as prescribed Reported Home Medications Medications Dose Route/Sig Max Daily Dose Days Date Category Dose Instructions [place] 5MG/325MG (Acetaminophen/Hydrocodone Bitart) Tab 1-2 Tablets PO Q4 PRN 01/20/17 Rx For Initial Treatment Voltaren (Diclofenac Sodium) 50 Mg Tabec 50 Mg PO BID 01/19/17 Reported Motrin (Ibuprofen) 600 Mg Tab 600 Mg PO Q6H PRN 01/19/17 Reported TAKE WITH FOOD Detrol LA (Tolterodine Tartrate) 2 Mg Capcr 1 Cap PO BID 01/19/17 Reported Omeprazole 20 Mg Tab 1 Tab PO QAM 01/19/17 Reported Allergy Nasal [place] 24 Ho (Fluticasone Propionate (Nasal)) 50 Mcg/Act Spr 1 Dose NA QAM 08/03/16 Reported Ventolin Hfa (Albuterol) 200 Puffs/27679 Mcg Aers 2-4 Puffs INH Q6H PRN 08/03/16 Reported Spiriva Respimat (Tiotropium [place]) 1.25 Mcg/Act Aer 1 Puff INH QAM 08/03/16 Reported Breo Ellipta (Fluticasone Furoate-Vilanterol) 1 Inh Inh 1 Puff INH QAM 08/03/16 Reported Citalopram Hydrobromide 20 Mg Tab 1 Tab PO QAM 08/03/16 Reported Aleve (Naproxen) 220 Mg Tab 220 Mg PO DAILY 12/04/15 Reported Singulair (Montelukast Sodium) 10 Mg Tab 10 Mg PO QAM 12/04/15 Reported Provider Instructions Activity Restrictions - No exercising or heavy lifting for 24 hours. - Do not drink alcohol the day of the procedure. - Do not drive a car or operate machinery until the day after the procedure. - Do not make any important decisions or sign important papers in 24 hours after the procedure. Following Day: - Return to full activity which may include returning to work/school. Diet Start your diet with liquids and light foods (jello, soup, juice, toast). Then eat your usual diet if not nauseated. Treatment For Common After Affects For mild abdominal pain, bloating, or excessive gas: - Rest - Eat lightly - Lie on right side Follow-Up Information Follow-up with Dr Brown as scheduled Anesthesia Information What You Should Know You have had a procedure that required some medicine to reduce anxiety and discomfort. This treatment is called moderate sedation. After receiving the treatment, you may be sleepy, but you will be able to breathe on your own. The effects of the treatment may last for several hours. Follow these instructions along with Activity/Diet recommendations noted above: * Do NOT do anything where dizziness or clumsiness would be dangerous. * Rest quietly at home today, then you can be up and about tomorrow. * Have a responsible person stay with you the rest of today. * You may have had an I.V. today. If so, you may take the dressing off later today. Recommendations Call your doctor if: * Trouble breathing * Continuous vomiting for more than 24 hours * Temperature above 101 degrees * Severe abdominal pain or bloating * Pain not relieved by pain medicine ordered * There is increased drainage or redness from any incision * A large amount of rectal bleeding greater than 2-3 tablespoons. (If you had a polyp/s removed or have hemorrhoids, a small amount of blood - from the rectum is to be expected.) * You have any unanswered questions or concerns. IN THE EVENT OF A SERIOUS EMERGENCY, GO TO THE NEAREST EMERGENCY ROOM Your discharge instructions were prepared by provider Trae Roque. Patient Instructions Signature Page Marla So Patient (or Guardian) Signature/Date: I have read and understand the instructions given to me by my caregivers. Caregiver/RN/Doctor Signature/Date: The above-named patient and/or guardian has received patient instructions on this date. + Original Patient Signature Page (only) stays with chart. Please make copy for patient.
--- NOTE | 2017-02-06 13:41 | Anesthesiology Progress Note ---
Anesthesia Post Op Note Date & Time Feb 06, 2017 at 13:41 Vital Signs Vital Signs Past 12 Hours Date Time Temp Pulse Resp B/P (MAP) Pulse Ox O2 Delivery O2 Flow Rate FiO2 02/06/17 13:31 81 16 112/63 (79) 95 Room Air 02/06/17 12:49 36.5 74 20 126/59 (81) 97 Room Air Notes Mental Status: alert / awake / arousable, participated in evaluation Pt Amnestic to Procedure: Yes Nausea / Vomiting: adequately controlled Pain: adequately controlled Airway Patency, RR, SpO2: stable & adequate BP & HR: stable & adequate Hydration State: stable & adequate Anesthetic Complications: no major complications apparent
--- NOTE | 2017-02-06 13:42 | GI REPORT ---
Procedure Date: 02/06/2017 1:04 PM Procedure: Colonoscopy Indications: Screening for colorectal malignant neoplasm Medicines: Monitored Anesthesia Care Complications: No immediate complications. Estimated Blood Loss: Estimated blood loss: none. Procedure: Pre-Anesthesia Assessment: - Prior to the procedure, a History and Physical was performed, and patient medications and allergies were reviewed. The patient's tolerance of previous anesthesia was also reviewed. The risks and benefits of the procedure and the sedation options and risks were discussed with the patient. All questions were answered, and informed consent was obtained. Prior Anticoagulants: The patient has taken no previous anticoagulant or antiplatelet agents. ASA Grade Assessment: II - A patient with mild systemic disease. After reviewing the risks and benefits, the patient was deemed in satisfactory condition to undergo the procedure. After I obtained informed consent, the scope was passed under direct vision. Throughout the procedure, the patient's blood pressure, pulse, and oxygen saturations were monitored continuously. The scope was introduced through the anus and advanced to the terminal ileum. The colonoscopy was performed without difficulty. The patient tolerated the procedure well. The quality of the bowel preparation was good. The terminal ileum, ileocecal valve, appendiceal orifice, and rectum were photographed. Findings: The perianal and digital rectal examinations were normal. A 4 mm polyp was found in the cecum. The polyp was sessile. The polyp was removed with a cold snare. Resection and retrieval were complete. Non-bleeding internal hemorrhoids were found during retroflexion. The hemorrhoids were small. Impression: - One 4 mm polyp in the cecum, removed with a cold snare. Resected and retrieved. - Non-bleeding internal hemorrhoids. Recommendation: - Resume previous diet. - Continue present medications. - Repeat colonoscopy for surveillance based on pathology results. - Return to primary care physician as previously scheduled. Trae Roque DO 02/06/2017 1:41:20 PM This report has been signed electronically. Note Initiated On: 02/06/2017 1:04 PM I attest to the content of the Intraoperative Record and orders documented therein, exceptions below
[2017-02-06 14:04] VITALS: BP 144/76; PULSE 72; O2SAT 98
== END | disposition home or self-care (01) ==
LOC: C.GI 12:09
PROVIDERS: ATTEND Internal Medicine
DX: Z12.11 Encounter for screening for malignant neoplasm of colon (principal); D12.0 Benign neoplasm of cecum; K64.8 Other hemorrhoids; Z87.891 Personal history of nicotine dependence

== ENCOUNTER → 2017-02-17 | Outpatient (CLI) | payer BC ==
[~2017-02-17] MED LIST changes: -LIDOCAINE HCL 2% 2 ML VIAL (20MG/ML) ONE; -MIDAZOLAM HCL 1 MG/ML 2ML VIAL ONE; -ONDANSETRON INJ 2 MG/ML 2 ML VIAL ONE; -PROPOFOL IV EMULSION 10 MG/ML 20 ML VIAL IV ONE; -SODIUM CHLORIDE 0.9% 500ML 500 ML IV ONE
[2017-02-17 14:42] LABS: URINE APPEARANCE CLEAR (CLEAR); URINE BILIRUBIN NEG (NEG); URINE COLOR YELLOW; URINE NITRITE NEG (NEG); URINE SPECIFIC GRAVITY 1.013 (1.000-1.030); UROBILINOGEN NEG (NEG)
[2017-02-17 14:45] LABS: MANUAL MICROSCOPIC REQUIRED? NO; REVIEW REQ? NO
== END | disposition home or self-care (01) ==
LOC: C.LABSPEC 13:19
PROVIDERS: ATTEND Obstetrics & Gynecology
DX: R32 Unspecified urinary incontinence (principal)

== ENCOUNTER → 2017-02-17 | Outpatient (CLI) | payer BC | END | disposition home or self-care (01) | LOC: C.PAPS 15:57 | PROVIDERS: ATTEND Obstetrics & Gynecology | DX: Z01.419 Encounter for gynecological examination (general) (routine) without abnormal findings (principal) ==

== ENCOUNTER → 2017-05-08 | Outpatient (CLI) | payer BC ==
[2017-05-08 12:53] LABS: INFLUENZA A PCR Neg for Influ A (NEG); INFLUENZA B PCR Neg for Influ B (NEG)
== END | disposition home or self-care (01) ==
LOC: C.LAB1850 11:06
PROVIDERS: ATTEND Physician Assistant
DX: J01.90 Acute sinusitis, unspecified (principal)

== ENCOUNTER 2017-06-27 14:49 | Emergency (ER) | payer BC ==
[~2017-06-27] VITALS: Ht 154.9 cm; Wt 84.6 kg
[~2017-06-27 14:49] MED LIST changes: -OMEP20TA PO
[2017-06-27 15:00] VITALS: BP 152/78; TEMP 36.9; Ht 154.9 cm; Wt 84.6 kg
[2017-06-27] MEDS ORDERED: OMEP20TA PO (15:18)
[2017-06-27] MEDS ORDERED: KETOROLAC TROMETHAMINE 60 MG/2 ML VIAL IM STA (16:09)
[2017-06-27] MEDS ORDERED: HYDR-5688 PO (16:49)
[2017-06-27] MEDS ORDERED: METH4PAK PO (16:51)
--- NOTE | 2017-06-27 16:51 | EMERGENCY ROOM VISIT NOTE ---
History First contact with patient: 15:04 Chief Complaint: BACK PAIN Stated Complaint: LOWER BACK PAIN History of Present Illness The patient is a 62 year old female who presents to the Emergency Room via private vehicle with complaints of "lower back pain". The patient states that she has been experiencing low back pain since an injury she had at work which occurred in January of this past year. She was seen here at that time and noted that she had x-rays. She followed up with [facility], and saw Dr. Ross as well as Dr. Huber. She has had injections in this region. She states that she was doing okay and had physical therapy with minimal relief. She went back to work last week and now is been experiencing increasing pain. She rates the pain is a 6/10. She points to the right sacroiliac joint as a location of pain. There is minimal radiation down the leg. She notes it is worse with movement and activity. No lower extremity weakness, bowel or bladder incontinence, numbness or tingling in the genital region. It sometimes will disrupt her sleep. She had an appointment a few days ago with orthopedics and notes one coming up next month. This is the same pain she has been experiencing just worse. Review of Systems A complete 10-point Review of Systems was discussed with the patient, with pertinent positives and negatives listed in the History of Present Illness. All remaining Review of Systems questions can be considered negative unless otherwise specified. Past Medical/Surgical History Medical Problems: (1) Acute bronchitis (2) Asthma (3) Back strain (4) Chronic obstructive pulmonary disease (5) COPD exacerbation (6) Cough (7) Spasm of back muscles Social History Smoking Status: Never Smoker Alcohol Use: occasionally Drug Use: none Marital Status: Housing Status: lives with family Occupation Status: employed Current/Historical Medications Scheduled Citalopram Hydrobromide (Citalopram Hydrobromide), 1 TAB PO QAM Fluticasone Furoate-Vilanterol (Breo Ellipta), 1 PUFF INH QAM Methylprednisolone (Medrol Dosepak), 0 PO DAILY Montelukast Sodium (Singulair), 10 MG PO QAM Omeprazole (Omeprazole), 1 TAB PO QAM Tiotropium [place] (Spiriva Respimat), 1 PUFF INH QPM Scheduled PRN Albuterol Hfa (Ventolin Hfa), 2-4 PUFFS INH Q6H PRN for Shortness of Breath Fluticasone Propionate (Nasal) (Allergy Nasal [place] 24 Ho), 1 DOSE NA QAM PRN for Nasal Congestion Hydrocodone/Acetaminophen 5MG/325MG (Napoleon 5MG/325MG), 1-2 TABLET PO Q6 PRN for Pain Physical Exam Vital Signs Date Time Temp Pulse Resp B/P (MAP) Pulse Ox O2 Delivery O2 Flow Rate FiO2 06/27/17 15:00 36.9 67 16 152/78 94 Room Air Physical Exam VITAL SIGNS - Vital signs and nursing notes were reviewed. Stable. Afebrile. GENERAL -62-year-old female appearing her stated age who is in no acute distress. Communicates well with provider and answers questions appropriately. SKIN - Without rashes. No meningeal or petechial rash. HEAD - NC/AT. EYES - PERRL with EOMI bilaterally. Sclera anicteric. EARS - No deformities of external structures noted on gross examination bilaterally. NOSE - Midline and without cyanosis. No epistaxis or purulent drainage noted. MOUTH/OROPHARYNX - Without perioral cyanosis. NECK - Neck with FROM. Supple to palpation. LUNGS - Chest wall symmetric without accessory muscle use, intercostals retractions, or central cyanosis. Normal vesicular breath sounds CTA B/L. No wheezes, rales, or rhonchi appreciated. CARDIAC - RRR with S1/S2. No murmur, rubs, or gallops appreciated. ABDOMEN - Abdominal contour normal without pulsations or visible masses. BS normoactive all four quadrants. No tenderness, palpable masses, hepatosplenomegaly, or ascites noted. EXTREMITIES - No clubbing or peripheral cyanosis. No pretibial edema present. + 5/5 strength noted in UE/LE bilaterally. NEUROLOGIC - Cranial nerves II through XII grossly intact. Sensory intact to light touch throughout. Patellar reflexes +2/4. Patient is able to axial load. There is tenderness overlying the right sacroiliac joint. PSYCH - A&O, and cooperates fully with examiner. Pt is very pleasant and interacts well with examiner. Medical Decision & Procedures Medications Administered Medications (Trade) Dose Ordered Sig/Trent Route Start Time Stop Time Status Last Admin Dose Admin Ketorolac Tromethamine (Toradol Inj) 60 mg NOW STAT IM 06/27/17 16:09 06/27/17 16:11 DC 06/27/17 16:38 60 MG Medical Decision Patient was seen and evaluated as above in room D6. Review was performed of nursing notes and vital signs. After obtaining a thorough history and physical examination the above work up was performed. I did review her previous x-ray and also obtain records from [facility]. She is being treated for sacroiliitis as well as lumbar foraminal stenosis. She is able to ambulate here and there is no evidence of cauda equina syndrome. This is the same pain she has been experiencing since January. She was given Toradol here and a short prescription for Napoleon. She was also given a Medrol Dosepak. No red flags in the [place] drug monitoring system. She is to return with worsening. I suspect she is experiencing an acute exacerbation of her chronic low back pain which stems from increased activity now that she return to work. I do believe this is likely continuing from her initial injury. I do not believe that further imaging today is warranted given that she has documented imaging studies as well as visits with spine. No new injury or trauma. The patient was educated upon management, had questions answered prior to discharge , and was discharged home in good condition. In the evaluation and treatment of this patient the following differential diagnoses were entertained: Cauda equina syndrome, lower extremity disruption, lumbar strain, fracture, dislocation, sacroiliitis, lumbar foraminal stenosis, acute abdominal etiology, among others. Impression Primary Impression: Sacroiliitis Additional Impression: Lumbar foraminal stenosis Departure Information Dispostion Home / Self-Care Condition GOOD Prescriptions Methylprednisolone (MEDROL DOSEPAK) 4 Mg [place] 0 PO DAILY, #1 PKT Prov: Yossi Perez PA-C 06/27/17 Hydrocodone/Acetaminophen 5MG/325MG (Napoleon 5MG/325MG) Tab 1-2 TABLET PO Q6 Y for Pain, #15 TAB For Initial Treatment Prov: Yossi Perez PA-C 06/27/17 Referrals Zheng Brown M.D. (PCP) Patient Instructions My [facility] Additional Instructions You have been treated in the Emergency Department for Back Pain. You have been prescribed NORCO to be used for pain control. This is a narcotic medication. You cannot drive or consume alcohol while on this medicine. This medicine should only be used for pain that cannot be controlled with over-the- counter pain medicines. Please do not take any Tylenol/acetaminophen with the [place]. You have been prescribed a Medrol Dosepak. Take this medication as prescribed. You should take the COMPLETE 6-day course of this medication. This is an anti- inflammatory medicine that will help to minimize your symptoms. For pain control, you can use the following [id number]-[id number] medicines (if >12 yo): - Regular strength (325mg/tab) Tylenol (acetaminophen) 2 tabs every 4-6 hours as needed. Do not exceed 12 tablets in a 24 hour period. Avoid taking more than 3 grams (3000 mg) of Tylenol per day. This includes any other sources of acetaminophen you may take on a regular basis. - Regular strength (200 mg/tab) Advil (ibuprofen) 1-2 tabs every 4-6 hours as needed. Do not exceed a dose of 3200 mg per day. If this is an acute injury, ice can be applied to the area of pain for the first 3 days to help decrease pain and inflammation. After the first 3 days, a heating pad can be used over the area for continued soothing relief. You should schedule a follow-up appointment in 2-3 days with your Primary Care Provider for further evaluation and treatment of your back pain. Return to the Emergency Department if your current symptoms worsen despite treatment course outlined above, or if you develop any of the following symptoms : intractable pain despite aforementioned treatment course, loss of control of your bowel or bladder, numbness or tingling in your groin, or development of a fever. Problem Qualifiers
[2017-06-27 17:07] VITALS: PULSE 92; O2SAT 95
== END 2017-06-27 17:08 | disposition home or self-care (01) ==
LOC: C.EDB 14:50 → C.EDD 17:08
DX: M46.1 Sacroiliitis, not elsewhere classified (principal); M99.73 Connective tissue and disc stenosis of intervertebral foramina of lumbar region; Z87.828 Personal history of other (healed) physical injury and trauma; J44.9 Chronic obstructive pulmonary disease, unspecified; Z79.899 Other long term (current) drug therapy; J45.909 Unspecified asthma, uncomplicated

== ENCOUNTER 2017-07-25 09:20 | Emergency (ER) | payer OTHER, BC ==
[~2017-07-25] VITALS: Ht 154.9 cm; Wt 82.4 kg
[~2017-07-25 09:20] MED LIST changes: -DICL50TA3 PO; -DTRSR/2 PO; -IBUP-1450 PO; -NAPR1TAB9 PO; +OMEP20TA PO
[2017-07-25 09:23] VITALS: TEMP 36.8; Ht 154.9 cm; Wt 82.4 kg
[2017-07-25] MEDS ORDERED: HYDR-5688 PO (10:31)
[2017-07-25] MEDS ORDERED: META1TAB22 PO (10:32)
[2017-07-25 11:04] VITALS: BP 158/88; PULSE 78; O2SAT 100
--- NOTE | 2017-07-25 17:23 | EMERGENCY ROOM VISIT NOTE ---
ED Visit Note First contact with patient: 09:42 Chief Complaint: Lower back pain. History of Present Illness: Ms. So is a 62-year-old white female who ambulates into the ED complaining of lumbar back pain. Historically patient reports she injured her lumbar back last January from a work-related injury of lifting heavy tables. She reports that x-rays were done and were normal. She reports an MRI was done and showed a possible disc injury. She was seen by Dr. Ross and reported that she was not a surgical candidate. She completed a course of physical therapy. Additionally she reports she has been seeing Dr. Huber and reports she has been getting steroid injections in her lumbar spine with her last one being May of this year. Additionally she reports she has been signed off and signed on to return to work multiple times since her injury and has taken at least 6 months off. She was recently reevaluated and signed to go back to work yesterday which he did. Patient reports since working over the last day she has been having increasing bilateral lumbar back pain with slight prominence on the right. She reports she was not doing any heavy lifting/moving or had any falls yesterday. Patient reports she has been having a constant pressure-like pain throughout the L5-S1 area with slight right sided prominence. Intermittent with movement she gets a sharp stabbing sensation. She rates her baseline pressure sensation 4/10 and her intermittent sharp pain 8/10. Additionally her pain worsens with palpation , lumbar spine positional changes, ambulation. She has not identified any alleviating factors related to both pains. She reports she has been prescribed Mobic, narcotics and Flexeril and has had no relief of her discomfort. She denies any associated symptoms including fevers, chills, sweats, skin eruptions, skin color changes, abdominal pain, nausea, vomiting, diarrhea, constipation, rectal bleeding, black/tarry stools, flank pain, urinary symptoms , hematuria, bowel and bladder dysfunctional, genital paresthesias, lower extremity weakness/numbness/tingling. Review of Systems: As noted above in history of present illness. All body systems were reviewed and found to be negative as noted above. Past Medical History: As previously noted, asthma, emphysema, unspecified right ankle and right shoulder surgeries. Current Medications: Medications Dose Route/Sig Max Daily Dose Days Date Category Dose Instructions Omeprazole 20 Mg Tab 1 Tab PO QAM 01/19/17 Reported Allergy Nasal [place] 24 Ho (Fluticasone Propionate (Nasal)) 50 Mcg/Act Spr 1 Dose NA QAM PRN 08/03/16 Reported Ventolin Hfa (Albuterol) 200 Puffs/55673 Mcg Aers 2-4 Puffs INH Q6H PRN 08/03/16 Reported Spiriva Respimat (Tiotropium [place]) 1.25 Mcg/Act Aer 1 Puff INH QPM 08/03/16 Reported Breo Ellipta (Fluticasone Furoate-Vilanterol) 1 Inh Inh 1 Puff INH QAM 08/03/16 Reported Citalopram Hydrobromide 20 Mg Tab 1 Tab PO QAM 08/03/16 Reported Singulair (Montelukast Sodium) 10 Mg Tab 10 Mg PO QAM 12/04/15 Reported Allergies to Medications: Morphine. Social History: Patient is currently employed; she feels safe in her home environment; she denies tobacco and alcohol use. Physical Examination: Vital Signs: Date Time Temp Pulse Resp B/P (MAP) Pulse Ox O2 Delivery O2 Flow Rate FiO2 07/25/17 11:04 78 20 158/88 100 07/25/17 09:23 36.8 76 22 138/75 98 Room Air GENERAL: 62-year-old female in moderate distress due to pain, nontoxic-appearing , afebrile and hemodynamically stable. NEUROLOGICAL: Awake, alert and oriented to person, place and time. Answering questions appropriately and following commands. Normal gait. Good hand eye coordination. No focal motor or sensory deficits. SKIN: Warm, dry and pink. No soft tissue eruptions or trauma noted. HEENT: Atraumatic and normocephalic. BACK: No tenderness over the bony cervical and thoracic spine. Moderate tenderness over the L4 through S3 area without bony deformity, bony crepitus, swelling or ecchymosis. There is also moderate tenderness throughout the lumbar para musculature with prominence on the right with obvious palpable spasm. Decreased range of motion in all movements of the lumbar spine due to pain. Because of body habitus and difficulty with flexion it was unable to perform a reliable straight leg raise test. No CVA tenderness. THORAX: Lungs sounds are clear to auscultation and equal bilaterally with symmetrical chest wall. HEART: Regular rate and rhythm. No gallops, rubs or murmurs are appreciated. ABDOMEN: Obese, soft and nontender. Positive bowel sounds in all quadrants. No guarding, rigidity or organomegaly. LOWER EXTREMITIES: No tenderness over the hips, thighs, knees, lower legs or ankle. 4/5 muscle strength in all movements of the hips, thighs, knees and ankles. 2+ patellar and Achilles deep tendon reflexes intact bilaterally they are slightly decreased on the left. She was able to distinguish light sensations to all dermatomes of the lower extremities. No calf tenderness or cords. No dependent edema. ED Course: Patient is assessed as noted above. Patient's medication list was reviewed. Patient was offered pain medication and refused. Patient was educated about today's findings and instructed on her treatment plan ; she verbalized understanding and agreement with this plan. Clinical Impression: Acute on chronic lumbar back pain. Previous work-related injury. Decision-Making: Initially my differential diagnosis I considered herniated disc , muscle strain, muscle spasm, lumbar fracture, discitis and other causes. Disposition: Patient discharged home in stable condition; prior to departure she was reassessed and subjectively reported she was feeling worse and rated her discomfort 10/10. Plan: Pain control including rest, a prescriptions for Skelaxin, ice, proper lifting and moving techniques and a sliding pain medication scale of ibuprofen, acetaminophen and OxyIR were discussed with the patient. Her name was checked on the state database and no red flags were noted and she was given appropriate narcotic precautions. Patient was encouraged to follow-up with Workmen's Compensation and she was signed off of work until follow-up with Workmen's Compensation. Patient was encouraged return to the ED for worsening pain, fevers, rectal/ genital paresthesias, bowel and bladder dysfunction, lower extremity weakness/ numbness/tingling or any new/concerning symptoms.
== END 2017-07-25 11:06 | disposition home or self-care (01) ==
LOC: C.EDB 09:21
DX: M54.5 Low back pain (principal); Z87.828 Personal history of other (healed) physical injury and trauma

== ENCOUNTER 2017-10-12 18:26 | Emergency (ER) | payer OTHER ==
[~2017-10-12] VITALS: Ht 157.5 cm; Wt 90.9 kg
[~2017-10-12 18:26] MED LIST changes: +ASMANEX INH; -HYDR-5688 PO; -TIOT1AER2 INH; -VNTHFA/IN INH
[2017-10-12 18:33] VITALS: TEMP 36.7; Ht 157.5 cm; Wt 90.9 kg
[2017-10-12] MEDS ORDERED: respimat INH (18:43)
[2017-10-12] MEDS ORDERED: ALBU18002 INH (18:45)
[2017-10-12] MEDS ORDERED: LIDODERM (LIDOCAINE) PATCH 5% TD STA (19:03)
[2017-10-12] MEDS ORDERED: NAPROXEN 250 MG TAB PO STA (19:03)
[2017-10-12] MEDS ORDERED: GABAPENTIN 300 MG CAP PO STA (19:03)
[2017-10-12] MEDS ORDERED: LIDO1PAD2 TD (19:12)
[2017-10-12] MEDS ORDERED: GABA-1219 PO (19:12)
[2017-10-12] MEDS ORDERED: NAPR-22 PO (19:12)
--- NOTE | 2017-10-12 19:15 | EMERGENCY ROOM VISIT NOTE ---
ED Visit Note First contact with patient: 18:36 CHIEF COMPLAINT: Low back pain HISTORY OF PRESENT ILLNESS: This 62-year-old female patient presents to the emergency department, ambulatory, complaining of pain in the low back which began in January. The patient states she injured her back at work and has been having issues ever since. She has been following with Dr. Merchant for chronic pain management and does report getting cortisone injections. For approximately the past 1 week, she has been experiencing a burning, sharp sensation into her but worse with bending and sitting. She is taken no OTC pain medications because "they do not work for me". She has been through physical therapy, and states this made her pain worse. She did have x-rays performed, and states there has been no new injury since these images. She states she contacted Dr. Merchant 3 weeks ago for the increased pain and was given a prescription for prednisone, but states "I do not take that, it makes me mean ". She has been taking muscle relaxers with improvement in spasms, but denies improvement in pain. The pain was gradual in onset, is now constant and worse with movement. The patient notes the pain a 6/10. The patient denies any loss of control of their bowel or bladder functions. There has been no leg numbness or weakness, and no change in sensation. No nausea or vomiting or abdominal pain. No chest pain or shortness of breath. No dysuria or increased urinary frequency. REVIEW OF SYSTEMS: A 10 system review of systems was performed with positives and pertinent negatives listed in the history of present illness. All other systems were reviewed and are negative. ALLERGIES: Morphine MEDICATIONS: Singulair, citalopram, Breo, Nasacort, omeprazole PMH: Allergic rhinitis SOCIAL HISTORY: The patient lives locally with family. She denies drug, alcohol, tobacco use. PHYSICAL EXAM: VITALS: Vitals are noted on the nurse's note and reviewed by myself. Vital signs stable. GENERAL: This is a 62-year-old white female, in no acute distress, nondiaphoretic, well-developed well-nourished. SKIN: The skin was without rashes, erythema, edema, or bruising. Capillary refill less than 2 seconds. NECK: Supple without nuchal rigidity. No cervical spine tenderness. No paraspinous muscle tenderness. HEART: Regular rate and rhythm without murmurs gallops or rubs. LUNGS: Clear to auscultation bilaterally without wheezes, rales or rhonchi. ABDOMEN: Positive bowel sounds x 4. Normal tympanic percussion. Soft, nontender, without masses or organomegaly. Chacon sign negative. MUSCULOSKELETAL: No muscle atrophy, erythema, or edema noted of the back. There is no tenderness over the lumbar spinous processes. There is tenderness over the paraspinous muscles bilaterally. There is pain over the right SI joint. There is no tenderness over the thoracic spine or paraspinous muscles. There are muscle spasms present. The patient is slow to move around with maximum tenderness with sitting from a lying position. Negative bilateral straight leg raise test. NEURO: Patient was alert and oriented to person place and time. Normal sensation to light and sharp touch. Deep tendon reflexes 2+ in the lower extremities. Dorsalis pedis pulse 2+ bilaterally. Strength 5/5 and equal in the bilateral lower extremities. EMERGENCY DEPARTMENT COURSE: The patient was seen and evaluated as above. The patient is not exhibiting any symptoms of cauda equina syndrome or epidural abscess. There has been no new injury, so I do not feel that repeating imaging at this time is necessary. The patient is chronically seeing pain management, and states her pain is consistent with her normal pain, however just slightly more severe. She is given a Lidoderm patch, gabapentin, and naproxen. I encouraged her to follow-up closely outpatient with pain management and her primary care provider. The patient was given prescriptions for the above medications. I did discuss with her the importance of an anti-inflammatory medication. She is adamantly refusing any steroids, so I recommended naproxen twice daily. The patient was agreeable. All questions answered patient satisfaction prior to discharge. Discharge instructions reviewed, the patient was discharged home in good condition. I attest that I have personally reviewed the patient's current medication list. Patient was found to have normal blood pressure on screening and does not require follow-up. Etiologies such as lumbago, sciatica, cauda equina, epidural abscess, osteomyelitis, fracture, aortic disease, metastatic disease, infection, renal colic, gastrointestinal, as well as others were entertained. DIAGNOSIS: Chronic low back pain The chart was completed utilizing [employer] voice recognition software. Grammatical errors, random word insertions, pronoun errors, and incomplete sentences are an occasional consequence of this system due to software limitations, ambient noise, and hardware issues. Any formal questions or concerns about the content, text, or information contained within the body of this dictation should be directly addressed to the provider for clarification. Problem List Medical Problems: (1) Acute bronchitis Status: Resolved (2) Asthma Status: Chronic (3) Back strain Status: Resolved (4) Chronic obstructive pulmonary disease Status: Chronic (5) COPD exacerbation Status: Resolved (6) Cough Status: Resolved (7) Spasm of back muscles Status: Resolved Current/Historical Medications Scheduled Citalopram Hydrobromide (Citalopram Hydrobromide), 20 MG PO QAM Fluticasone Furoate-Vilanterol (Breo Ellipta), 1 PUFF INH QAM Gabapentin (Gabapentin), 1 CAP PO TID Lidocaine (Lidocaine), 1 PATCH TD QD Montelukast Sodium (Singulair), 10 MG PO QAM Naproxen (Naprosyn), 500 MG PO BID Omeprazole (Omeprazole), 20 MG PO QAM [respimat], 1 PUFF INH DAILY Scheduled PRN Albuterol Sulfate (Proair Respiclick), 2 PUFFS INH DAILY PRN for SOB/Wheezing Allergies Coded Allergies: Morphine (Verified Allergy, Mild, SWELLING OF THROAT, RED RASH, 10/12/17) Vital Signs Date Time Temp Pulse Resp B/P (MAP) Pulse Ox O2 Delivery O2 Flow Rate FiO2 10/12/17 19:52 80 20 145/78 95 Room Air 10/12/17 18:33 36.7 83 20 138/65 95 Room Air Medications Administered Medications (Trade) Dose Ordered Sig/Trent Route Start Time Stop Time Status Last Admin Dose Admin Lidocaine (Lidoderm Patch 5%) 1 patch NOW STAT TD 10/12/17 19:03 10/12/17 19:05 DC 10/12/17 19:31 1 PATCH Naproxen (Naprosyn Tab) 500 mg NOW STAT PO 10/12/17 19:03 10/12/17 19:05 DC 10/12/17 19:30 500 MG Departure Information Impression Primary Impression: Strain of lumbar region Additional Impression: Chronic low back pain Dispostion Home / Self-Care Condition GOOD Prescriptions Gabapentin (Gabapentin) 300 Mg Cap 1 CAP PO TID, #90 CAP Prov: Pam Arana, PACarmeloC 8/9/18 Lidocaine (LIDOCAINE) 5 % Pad 1 PATCH TD QD, #30 PATCH apply x 12 hours, then remove x 12 hours Prov: Pam Arana PA-C 10/12/17 Naproxen (Naprosyn) 500 Mg Tab 500 MG PO BID, #60 TAB Prov: Pam Arana PA-C 10/12/17 Referrals Zheng Brown M.D. (PCP) Jonathan Merchant M.D. Patient Instructions ED Low Back Pain Injury, [facility] Additional Instructions You have been treated in the Emergency Department for Back Pain. Use Lidoderm patches as prescribed. No more than 1 patch in 24 hours. apply x 12 hours, then remove x 12 hours Use muscle relaxers you have at home to help with spasms. Use gabapentin as directed. 1 capsule up to 3 times daily. This medication is for nerve pain, and I suspect will help with the burning sensation you are experiencing. Do not take this medication prior to driving, as it may make you fatigued. For pain control, you can use the following [id number] medicines (if >12 yo): Naproxen may be used for fever or pain. Use 500mg every twelve hours as needed. Take with food. Avoid using more than 1000mg in a 24 hour period. Do not use 1000mg per day for more than three consecutive days without physician direction. Prolonged inappropriate use can lead to stomach upset or ulcers. No other NSAIDs while taking this medication. (AND/OR) Acetaminophen(Tylenol) may be used for fever or pain. Use 1000mg every six hours as needed. Avoid using more than 3000mg in a 24 hour period. If this is an acute injury, ice can be applied to the area of pain for the first 3 days to help decrease pain and inflammation. After the first 3 days, a heating pad can be used over the area for continued soothing relief. You should schedule a follow-up appointment in 2-3 days with your Primary Care Provider for further evaluation and treatment of your back pain. Return to the Emergency Department if your current symptoms worsen despite treatment course outlined above, or if you develop any of the following symptoms : intractable pain despite aforementioned treatment course, loss of control of your bowel or bladder, numbness or tingling in your groin, or development of a fever. Problem Qualifiers Primary Impression: Strain of lumbar region Encounter type: initial encounter Qualified Codes: S39.012A - Strain of muscle, fascia and tendon of lower back, initial encounter Additional Impression: Chronic low back pain Back pain laterality: bilateral Sciatica presence: with sciatica Sciatica laterality: bilateral sciatica Qualified Codes: M54.42 - Lumbago with sciatica, left side; M54.41 - Lumbago with sciatica, right side; G89.29 - Other chronic pain
[2017-10-12 19:52] VITALS: BP 145/78; PULSE 80; O2SAT 95
== END 2017-10-12 20:11 | disposition home or self-care (01) ==
LOC: C.EDB 18:27 → C.EDD 20:11
DX: S39.012A Strain of muscle, fascia and tendon of lower back, initial encounter (principal); X58.XXXA Exposure to other specified factors, initial encounter; Y99.0 Civilian activity done for income or pay; M54.5 Low back pain; G89.29 Other chronic pain; J45.909 Unspecified asthma, uncomplicated; J44.9 Chronic obstructive pulmonary disease, unspecified; Z79.52 Long term (current) use of systemic steroids; Z79.899 Other long term (current) drug therapy; Z88.5 Allergy status to narcotic agent

== ENCOUNTER 2021-05-24 18:56 | Inpatient (IN) ==
[2021-05-24] MEDS ORDERED: PIPERACILLIN/TAZOBACTAM 4.5 GM/120 ML BAG IV ONE (21:56)
[2021-05-24] MEDS ORDERED: PIPERACILL/TAZOBAC CONSULT ACTIVE PRN (21:56)
--- NOTE | 2021-05-24 22:15 | Emergency Department Note ---
History of Present Illness General Chief complaint: Skin Problem Stated complaint: PAINFUL LUMP IN R GROIN, NEAR LABIA Time Seen by Provider: 05/24/21 21:43 History of Present Illness Maximum Pain Intensity: 8 This 66-year-old presents to the ER complaining of right labial infection Location: Right labia Quality: Painful Severity: Moderate Duration: Past day Timing: Started yesterday Context: Patient was concerned and came in Modifying factors: better with rest; worse with palpation Patient denies trauma to the area. No shaving. No history of infection to this area. Patient does not monitor her blood sugars with her diabetes. Patient denies chest pain, dyspnea, fevers, vomiting, diarrhea. Home Medications Medication Instructions Recorded Confirmed Type citalopram 20 mg tablet (Celexa) 20 mg PO DAILY #90 tab 06/22/20 05/24/21 Rx montelukast 10 mg tablet 10 mg PO QPM #90 tab 06/22/20 05/24/21 Rx meloxicam 7.5 mg tablet 7.5 mg PO DAILY #90 tab 09/28/20 05/24/21 Rx fluticasone propionate 50 2 spray INTNAS DAILY #15.8 ml 12/14/20 05/24/21 Rx mcg/actuation nasal spray,suspension triamcinolone acetonide 0.1 % 1 applic TOPICAL BID PRN #30 g 12/28/20 05/24/21 Rx topical cream omeprazole 20 mg capsule,delayed 20 mg PO QAM #90 cap 12/29/20 05/24/21 Rx release metformin 500 mg tablet 500 mg PO BID #60 tab 04/23/21 05/24/21 Rx Allergies Allergy/AdvReac Type Severity Reaction Status Date / Time morphine Allergy Intermediate SWELLING Verified 05/24/21 20:30 OF THROAT, RED RASH Past Med/Surg History Medical History (Updated 05/24/21 @ 23:45 by Sara Mcmanus PA-C) Allergic rhinitis Anxiety Asthma Chronic obstructive pulmonary disease Spiriva daily, very rare albuterol use, usually just with muggy weather Current smoker Degenerative disc disease Depression Encounter for immunization Former smoker quit 2002 GERD (gastroesophageal reflux disease) Hiatal hernia Migraine HX LYNNETTE (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, PETS [employer] Osteoarthritis Pulmonary emphysema Schatzki's ring S/P DILATION Urinary incontinence Urinary leakage Surgical History History of ankle surgery RIGHT History of bilateral tubal ligation History of cataract surgery RIGHT/LEFT History of colonoscopy History of esophagogastroduodenoscopy (EGD) WITH DILATION History of repair of rotator cuff RIGHT History of tooth extraction Family History Father Alcoholism Alcohol drinking problem Cardiac disorder Myocardial infarction Mother Alcohol drinking problem COPD (chronic obstructive pulmonary disease) Hypertension Sister Lung disease Denies family history of Ovarian cancer Prostate cancer Breast cancer Colorectal cancer Social History Smoking Status: Former smoker Tobacco Type: Cigarettes Age Started Using Tobacco: 14; Age Quit Using Tobacco: 46; Cigarettes Per Day: 20; Second Hand Exposure: No; Hx Alcohol Use: No Hx Substance Use: No Preferred Language: Irish Communication Ability: Effective Visual Impairment: No Limitations Hearing Ability: Normal Senior Administrative Services Officer Required: No Beliefs That Will Affect Care: None marital status: Single Current Living Situation: Family Current Living Situation Comment: grandson and granddaughter current occupational status: employed and retired current occupation: retired from working at [employer], 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 [employer] How many Children do You have: 3 Feels Safe at Home: Yes Childhood Exposure to Second-Hand Smoke: No Dental Care, Regularly: No Physical Activity Frequency: Does not Exercise Physical Activity Frequency Comment: Exercise limited by physical condition Seatbelt Use: sometimes Sunscreen Use: No Assistive Devices: None Review of Systems A total of 10 systems reviewed and were otherwise negative Physical Exam Vital Signs Vital Signs - 24 hr 05/24/21 19:00 05/24/21 20:32 05/24/21 22:00 Temperature 36.8 C Temperature Source Temporal Artery Scan Pulse Rate 82 Pulse Rate [Finger] 97 H 87 Pulse Rhythm [Finger] Regular Regular Pulse Strength [Finger] Normal Normal Respiratory Rate 18 18 20 Respiratory Effort / Characteristics Non-Labored Spontaneous Non-Labored Spontaneous Non-Labored Spontaneous Respiratory Depth Normal Normal Normal Blood Pressure 160/88 H Blood Pressure [Right Arm] 181/95 H 145/79 H Blood Pressure Mean 112 Blood Pressure Mean [Right Arm] 123 101 Blood Pressure Position Sitting Blood Pressure Position [Right Arm] Lying Pulse Oximetry 92 97 96 Oxygen Delivery Method Room Air Room Air Room Air Sepsis Recent Fever Within 48 Hours No Sepsis New/Unexplained Change in Mental Status No Sepsis Action Taken by Nursing No Action Required 05/25/21 00:00 Temperature Temperature Source Pulse Rate Pulse Rate [Finger] 76 Pulse Rhythm [Finger] Pulse Strength [Finger] Respiratory Rate 20 Respiratory Effort / Characteristics Respiratory Depth Blood Pressure Blood Pressure [Right Arm] 154/71 H Blood Pressure Mean Blood Pressure Mean [Right Arm] 98 Blood Pressure Position Blood Pressure Position [Right Arm] Pulse Oximetry 97 Oxygen Delivery Method Room Air Sepsis Recent Fever Within 48 Hours Sepsis New/Unexplained Change in Mental Status Sepsis Action Taken by Nursing VITALS: Vitals are noted on the nurse's note and reviewed by myself. Vital signs stable. GENERAL: Pleasant elderly female, in no acute distress, nondiaphoretic, well- developed well-nourished. SKIN: Right groin labial area erythematous tender to palpation extending to the buttock and part of the perineum, the rest of the skin was without rashes, erythema, edema, or bruising. There is no tenting of the skin. Capillary reflex less than 2 seconds. HEAD: Normocephalic atraumatic. EARS: External auditory canals clear, EYES: Pupils equal round and reactive to light and accommodation. Conjunctivae without injection, sclerae without icterus. Extraocular movements intact. NOSE: Patent, turbinates without inflammation or discharge. MOUTH: Mucous membranes moist. Pharynx without erythema or exudate. Uvula midline. Airway patent. Tongue does not deviate. NECK: Supple without nuchal rigidity. No lymphadenopathy. No thyromegaly. Cervical spine is nontender. No JVD. HEART: Regular rate and rhythm LUNGS: Clear to auscultation bilaterally without wheezes, rales or rhonchi. No retractions or accessory muscle use. ABDOMEN: Positive bowel sounds x 4. Normal tympanic percussion. Soft, nontender, without masses or organomegaly. Chacon sign negative. No guarding or rebound tenderness. No CVA tenderness exam: Right groin area erythematous and edematous concerning for infection extended to the perineum in the buttock region, nurse was present. No Bartholin's abscess. No [place]'s abscess. MUSCULOSKELETAL: No muscle atrophy, erythema, or edema noted. NEURO: Patient was alert and oriented to person place and time. Normal sensation to light and sharp touch. No focal neurological deficits. Course Administered Medications Citalopram Hydrobromide (Citalopram 20 Mg Tab) 20 mg PO DAILY [facility] Stop: 06/24/21 08:59 Last Admin: 05/25/21 08:29 Dose: 20 mg Documented by: [id number] Fluticasone Propionate (Fluticasone Propionate Na Spr 16 Gm Btl) 2 sprays NA DAILY [facility] Stop: 06/24/21 08:59 Last Admin: 05/25/21 08:29 Dose: 2 sprays Documented by: [id number] Daptomycin 250 mg/ Syringe 5 mls @ 2.5 mls/min IV Q24H [facility]; Protocol Stop: 06/01/21 03:59 Last Admin: 05/25/21 04:00 Dose: 2.5 mls/min Documented by: [id number] Piperacillin Sod/Tazobactam (Sod 4.5 gm/ Dextrose) 120 mls @ 30 mls/hr IV Q8H [facility]; Protocol Stop: 06/01/21 03:59 Last Infusion: 05/25/21 16:44 Dose: 0 mls/hr Documented by: [id number] Admin: 05/25/21 12:32 Dose: 30 mls/hr Documented by: [id number] Infusion: 05/25/21 08:28 Dose: 0 mls/hr Documented by: [id number] Admin: 05/25/21 03:53 Dose: 30 mls/hr Documented by: [id number] Meloxicam (Meloxicam 7.5 Mg Tab) 7.5 mg PO DAILY [facility] Stop: 06/24/21 08:59 Last Admin: 05/25/21 08:29 Dose: 7.5 mg Documented by: [id number] Discontinued Medications Piperacillin Sod/Tazobactam Sod (Zosyn) 4.5 gm in 120 mls @ 240 mls/hr IV NOW ONE Stop: 05/24/21 22:25 Last Infusion: 05/24/21 23:36 Dose: 0 mls/hr Documented by: [id number] Admin: 05/24/21 22:26 Dose: 240 mls/hr Documented by: [id number] Vancomycin HCl 1,750 mg/ (Sodium Chloride) 535 mls @ 200 mls/hr IV NOW ONE Stop: 05/25/21 02:07 Last Infusion: 05/25/21 03:45 Dose: 0 mls/hr Documented by: [id number] Admin: 05/25/21 01:01 Dose: 200 mls/hr Documented by: [id number] Clindamycin Phosphate 900 mg/ (Dextrose) 56 mls @ 112 mls/hr IV ONE ONE Stop: 05/24/21 23:56 Last Infusion: 05/25/21 01:01 Dose: 0 mls/hr Documented by: [id number] Admin: 05/25/21 00:01 Dose: 112 mls/hr Documented by: [id number] Piperacillin Sod/Tazobactam (Sod 3.375 gm/ Dextrose) 115 mls @ 28.75 mls/hr IV Q8H [facility]; Protocol Stop: 06/01/21 02:12 Last Admin: 05/25/21 04:06 Dose: Not Given Documented by: [id number] Ioversol (Optiray 320 100ml) 93 ml IV ONCE ONE Stop: 05/24/21 22:59 Last Admin: 05/24/21 22:58 Dose: 1 ml Documented by: [id number] Medical Decision Making Medical Records Attestation: I reviewed the patient's medical records. Home Medications Current Medication List: was personally reviewed by me Laboratory Data Attestation: I reviewed the patient's lab results. Result diagrams: 05/24/21 22:08 05/24/21 22:08 Lab Results 05/24/21 05/24/21 05/24/21 Range/Units 22:08 22:08 22:08 WBC 10.05 (4.8-10.8) K/uL RBC 4.78 (4.2-5.4) M/uL Hgb 13.3 (12.0-16.0) g/dL Hct 41.7 (37-47) % MCV 87.2 (80-100) fL MCH 27.8 (25-34) pg MCHC 31.9 L (32-36) g/dL RDW Std Deviation 46.5 H (36.4-46.3) fL RDW Coeff of Levar 14.5 (11.5-14.5) % Plt Count 251 (130-400) K/uL MPV 10.9 H (7.4-10.4) fL Immature Gran % (Auto) 0.2 % Neut % (Auto) 62.6 % Lymph % (Auto) 29.3 % [place] % (Auto) 6.3 % Eos % (Auto) 1.2 % Baso % (Auto) 0.4 % Neut # (Auto) 6.30 (1.4-6.5) K/uL Lymph # (Auto) 2.94 (1.2-3.4) K/uL [place] # (Auto) 0.63 H (0.11-0.59) K/uL Eos # (Auto) 0.12 (0-0.5) K/uL Baso # (Auto) 0.04 (0-0.2) K/uL Immature Gran # (Auto) 0.02 (0.00-0.02) K/uL ESR (0-30) mm/hr Sodium 138 (136-145) mmol/L Potassium 3.7 (3.5-5.1) mmol/L Chloride 105 (98-107) mmol/L Carbon Dioxide 24 (21-32) mmol/L Anion Gap 9 (3-11) BUN 16 (6-23) mg/dl Creatinine 0.70 (0.6-1.2) mg/dl Est Cr Clr Drug Dosing 75.9 ml/min Est GFR ( Amer) 103.2 ml/min Est GFR (Non-Af Amer) 89.0 ml/min BUN/Creatinine Ratio 22.9 H (10-20) Glucose 104 H (70-99(Fasting)) mg/dl Lactate 0.9 (0.4-2.0) mmol/L Calcium 9.2 (8.5-10.1) mg/dl Total Bilirubin 0.4 (0.2-1.0) mg/dl AST 17 (13-39) U/L ALT 15 (7-52) U/L Alkaline Phosphatase 61 (34-104) U/L C-Reactive Protein (0-0.5) mg/dl Total Protein 7.2 (6.0-8.3) gm/dl Albumin 4.1 (3.4-5.0) gm/dl Globulin 3.1 (2.5-4.0) gm/dl Albumin/Globulin Ratio 1.3 (0.9-2) Procalcitonin (0-0.5) ng/ml SARS-CoV-2, RNA, NAAT (NEGATIVE) 05/24/21 05/24/2122 Range/Units 22:08 22:08 22:15 WBC (4.8-10.8) K/uL RBC (4.2-5.4) M/uL Hgb (12.0-16.0) g/dL Hct (37-47) % MCV (80-100) fL MCH (25-34) pg MCHC (32-36) g/dL RDW Std Deviation (36.4-46.3) fL RDW Coeff of Levar (11.5-14.5) % Plt Count (130-400) K/uL MPV (7.4-10.4) fL Immature Gran % (Auto) % Neut % (Auto) % Lymph % (Auto) % [place] % (Auto) % Eos % (Auto) % Baso % (Auto) % Neut # (Auto) (1.4-6.5) K/uL Lymph # (Auto) (1.2-3.4) K/uL [place] # (Auto) (0.11-0.59) K/uL Eos # (Auto) (0-0.5) K/uL Baso # (Auto) (0-0.2) K/uL Immature Gran # (Auto) (0.00-0.02) K/uL ESR 22 (0-30) mm/hr Sodium (136-145) mmol/L Potassium (3.5-5.1) mmol/L Chloride (98-107) mmol/L Carbon Dioxide (21-32) mmol/L Anion Gap (3-11) BUN (6-23) mg/dl Creatinine (0.6-1.2) mg/dl Est Cr Clr Drug Dosing ml/min Est GFR ( Amer) ml/min Est GFR (Non-Af Amer) ml/min BUN/Creatinine Ratio (10-20) Glucose (70-99(Fasting)) mg/dl Lactate (0.4-2.0) mmol/L Calcium (8.5-10.1) mg/dl Total Bilirubin (0.2-1.0) mg/dl AST (13-39) U/L ALT (7-52) U/L Alkaline Phosphatase (34-104) U/L C-Reactive Protein 1.17 H (0-0.5) mg/dl Total Protein (6.0-8.3) gm/dl Albumin (3.4-5.0) gm/dl Globulin (2.5-4.0) gm/dl Albumin/Globulin Ratio (0.9-2) Procalcitonin < 0.05 (0-0.5) ng/ml SARS-CoV-2, RNA, NAAT (NEGATIVE) 05/24/21 Range/Units 22:27 WBC (4.8-10.8) K/uL RBC (4.2-5.4) M/uL Hgb (12.0-16.0) g/dL Hct (37-47) % MCV (80-100) fL MCH (25-34) pg MCHC (32-36) g/dL RDW Std Deviation (36.4-46.3) fL RDW Coeff of Levar (11.5-14.5) % Plt Count (130-400) K/uL MPV (7.4-10.4) fL Immature Gran % (Auto) % Neut % (Auto) % Lymph % (Auto) % [place] % (Auto) % Eos % (Auto) % Baso % (Auto) % Neut # (Auto) (1.4-6.5) K/uL Lymph # (Auto) (1.2-3.4) K/uL [place] # (Auto) (0.11-0.59) K/uL Eos # (Auto) (0-0.5) K/uL Baso # (Auto) (0-0.2) K/uL Immature Gran # (Auto) (0.00-0.02) K/uL ESR (0-30) mm/hr Sodium (136-145) mmol/L Potassium (3.5-5.1) mmol/L Chloride (98-107) mmol/L Carbon Dioxide (21-32) mmol/L Anion Gap (3-11) BUN (6-23) mg/dl Creatinine (0.6-1.2) mg/dl Est Cr Clr Drug Dosing ml/min Est GFR ( Amer) ml/min Est GFR (Non-Af Amer) ml/min BUN/Creatinine Ratio (10-20) Glucose (70-99(Fasting)) mg/dl Lactate (0.4-2.0) mmol/L Calcium (8.5-10.1) mg/dl Total Bilirubin (0.2-1.0) mg/dl AST (13-39) U/L ALT (7-52) U/L Alkaline Phosphatase (34-104) U/L C-Reactive Protein (0-0.5) mg/dl Total Protein (6.0-8.3) gm/dl Albumin (3.4-5.0) gm/dl Globulin (2.5-4.0) gm/dl Albumin/Globulin Ratio (0.9-2) Procalcitonin (0-0.5) ng/ml SARS-CoV-2, RNA, NAAT NEGATIVE (NEGATIVE) Imaging Data Attestation: I personally reviewed and interpreted this imaging study as follows: Radiologist's Impression: Pelvis CT 05/24/21 21:54 CT SCAN OF THE PELVIS WITH IV CONTRAST CLINICAL HISTORY: Right labial/buttock infection. COMPARISON STUDY: Pelvic radiograph dated 11/08/2018. TECHNIQUE: Following the IV administration of 93 cc of Optiray 320, CT scan of the pelvis is performed from the pelvic inlet to the proximal femora. Images are reviewed in the axial, sagittal, and coronal planes. IV contrast was administered without complication. A dose lowering technique was utilized adhering to the principles of ALARA. CT DOSE: 1068.10 mGy.cm FINDINGS: The bladder, uterus, and adnexa are normal as visualized. No intraperitoneal free air or free fluid is seen in the pelvis. The imaged bowel loops show no evidence of obstruction. There is no pelvic sidewall or inguinal adenopathy. The perianal soft tissues are normal in appearance. The skeletal structures are osteopenic. The bony pelvis appears intact. No lytic or blastic lesion is seen. Sclerotic change is noted in the pubic symphysis. The regional musculature is normal and symmetric. There is soft tissue infiltration identified in the right aspect of the labia and perineum. No organized fluid collection is seen to indicate abscess. No soft tissue gas is identified. IMPRESSION: 1. There is soft tissue induration within the right aspect of the labia and perineum typical for cellulitis. Clinical correlation will be required. 2. No organized fluid collection is seen to indicate abscess. 3. Pelvic viscera is normal as imaged. ACT 112: Negative or not required by law. Dictated: 05/25/2021 8:04 AM Transcribed: 05/25/2021 8:13 AM Lisa [id number] Electronically signed by: Campbell Gillette M.D. 05/25/2021 8:16 AM [facility] Narrative Prior records reviewed and summarized as above. Triage Nursing notes reviewed. Additional history obtained from nursing. The patient's history was concerning for swelling and redness of the skin. Differential diagnosis: Etiologies such as cellulitis, abscess, MRSA infection, DVT, necrotizing fasciitis, dermatitis, drug eruption, as well as others were entertained.. Physical examination: The physical examination was consistent with cellulitis ER treatment provided: Zosyn, clinda, vanco On reassessment the patient felt better. Diagnostics interpreted by me: The labs revealed no worrisome leukocytosis, negative procalcitonin Imaging studies: Preliminary Findings Only See Final Report For Complete Findings CT PELVIS: Subcutaneous fat stranding right labia and right aspect of the perineum suggesting cellulitis. No abscess. Normal appendix. Radiologist: Rodney Ayoub M.D. Consultation: A consultation was placed with the hospitalist. The case was discussed and diagnostics were reviewed. The patient was evaluated in the ER for further tr eatment. This appears to be labia and perineum infection. Patient was extensively tender. She is a diabetic. She is written for antibiotics. Medicine was consulted. She will be admitted. By the evaluation outlined above emergent etiologies such as abscess, DVT, as well as others were deemed relatively unlikely. The pt informed about the findings as listed above. All questions were answered and pleased with the treatment. The chart was completed utilizing [employer] Speech voice recognition software. Grammatical errors, random word insertions, pronoun errors, and incomplete se ntences are an occassional consequence of this system due to software limitations, ambient noise, and hardware issues. Any formal questions or concerns about the content, text, or information contained within the body of this dictation should be directly addressed to the physician property management assistant for cla rification. Impression & Plan Cellulitis of perineum, Cellulitis of labia Discharge Plan Visit Data Chief Complaint: Skin Problem Stated Complaint: PAINFUL LUMP IN R GROIN, NEAR LABIA ED Provider: James Cardona ED Midlevel Provider: Sara Mcmanus Discharge Problem: Cellulitis of perineum, Cellulitis of labia Patient Disposition: Admitted As Inpatient Condition: Good Discharge Instructions Interventions: ED Discharge Assessment Last Done: 05/25/21 02:21 Addendum May 25, 2021 18:08 HPI: The patient is a 67 y/o woman with a pmhx of COPD, GERD, migraines, LYNNETTE on CPAP, OA who presents to the emergency department with concern for right labial infection. A/P: CT pelvis demonstrates subcutaneous fat stranding of right labia/perineum c/w cellulitis per preliminary [employer] report. WBC, H/H, platelets wnl. Chemistry without acidosis. IV ABX. Admission. I reviewed the patient's past medical history, medications, and visit nursing notes. I discussed the case with the physician property management assistant, examined the patient, and agree with the findings and plan as documented in RUTH Mcmanus's note.
[2021-05-24 22:16] LABS: Basophils # (auto) 0.04 K/uL (0-0.2); Basophils % (auto) 0.4 %; Eosinophils # (auto) 0.12 K/uL (0-0.5); Eosinophils % (auto) 1.2 %; Hematocrit (blood only) 41.7 % (37-47); Hemoglobin 13.3 g/dL (12.0-16.0); Immature Granulocytes # (auto) 0.02 K/uL (0.00-0.02); Immature Granulocytes % (auto) 0.2 %; Lymphocytes # (auto) 2.94 K/uL (1.2-3.4); Lymphocytes % (auto) 29.3 %; Mean Corpuscular Hemoglobin 27.8 pg (25-34); Mean Corpuscular Hgb Conc 31.9 g/dL (32-36); Mean Corpuscular Volume 87.2 fL (80-100); Mean Platelet Volume 10.9 fL (7.4-10.4); Monocytes # (auto) 0.63 K/uL (0.11-0.59); Monocytes % (auto) 6.3 %; Neutrophils % (auto) 62.6 %; Platelet Count 251 K/uL (130-400); RDW Coefficient of Variation 14.5 % (11.5-14.5); RDW Standard Deviation 46.5 fL (36.4-46.3); Red Blood Count 4.78 M/uL (4.2-5.4); White Blood Count 10.05 K/uL (4.8-10.8)
[2021-05-24 22:35] LABS: Albumin Globulin Ratio 1.3 (0.9-2); Albumin Level 4.1 gm/dl (3.4-5.0); BUN Creatinine Ratio 22.9 (10-20); Bilirubin,Total 0.4 mg/dl (0.2-1.0); Calcium 9.2 mg/dl (8.5-10.1); Creatinine Clr Calc Pharmacy 75.9 ml/min; Est GFR (African American) 103.2 ml/min; Globulin 3.1 gm/dl (2.5-4.0); Potassium 3.7 mmol/L (3.5-5.1); Total Protein 7.2 gm/dl (6.0-8.3)
[2021-05-24] MEDS ORDERED: OPTIRAY 320 100ml IV ONE (22:58)
[2021-05-24] MEDS ORDERED: VANCOMYCIN CONSULT ACTIVE PRN (23:27)
[2021-05-24] MEDS ORDERED: VANCOMYCIN HCL 1,750 MG in SODIUM CHLORIDE 0.9% 500 ML IV ONE (23:27)
[2021-05-24] MEDS ORDERED: CLINDAMYCIN 900 MG in DEXTROSE 5% 50 ML IV ONE (23:27)
--- NOTE | 2021-05-25 00:07 | History & Physical Report ---
Date of Service May 25, 2021 Assessment & Plan (1) Cellulitis of perineum: Plan: Patient afebrile, HD stable, nontoxic in appearance. CT suggestive of cellulitis and stranding. No drainable collection. -Zosyn, Daptomycin -Warm compresses (2) COPD with emphysema: Plan: Chronic. Stable -Continue Singulair (3) GERD (gastroesophageal reflux disease): Plan: Chronic. Stable -Continue Omeprazole History of Present Illness Chief Complaint: labia pain Primary Care Provider: Zheng Brown MD Caroline So is a pleasant 66yo female with history of COPD/Asthma and GERD presenting with painful lump on right labia. Patient noted the lump about 3-4 days ago. She states it feels larger and more tender. No drainage. No fever, chills, sweats, rigors, abdominal pain, nausea, vomiting, diarrhea or constipation. No additional complaints at this time. The swelling rubs against patient's clothes and causes severe pain. Afebrile, HD stable in ER. Allergies Allergy/AdvReac Type Severity Reaction Status Date / Time morphine Allergy Intermediate SWELLING Verified 05/24/21 20:30 OF THROAT, RED RASH Home Medications Medication Instructions Recorded Confirmed Type citalopram 20 mg tablet (Celexa) 20 mg PO DAILY #90 tab 06/22/20 05/24/21 Rx montelukast 10 mg tablet 10 mg PO QPM #90 tab 06/22/20 05/24/21 Rx meloxicam 7.5 mg tablet 7.5 mg PO DAILY #90 tab 09/28/20 05/24/21 Rx fluticasone propionate 50 2 spray INTNAS DAILY #15.8 ml 12/14/20 05/24/21 Rx mcg/actuation nasal spray,suspension triamcinolone acetonide 0.1 % 1 applic TOPICAL BID PRN #30 g 12/28/20 05/24/21 Rx topical cream omeprazole 20 mg capsule,delayed 20 mg PO QAM #90 cap 12/29/20 05/24/21 Rx release metformin 500 mg tablet 500 mg PO BID #60 tab 04/23/21 05/24/21 Rx Past Med/Surg History Medical History (Updated 05/24/21 @ 23:45 by Sara Mcmanus PA-C) Allergic rhinitis Anxiety Asthma Chronic obstructive pulmonary disease Spiriva daily, very rare albuterol use, usually just with muggy weather Current smoker Degenerative disc disease Depression Encounter for immunization Former smoker quit 2002 GERD (gastroesophageal reflux disease) Hiatal hernia Migraine HX LYNNETTE (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, 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[facility] Osteoarthritis Pulmonary emphysema Schatzki's ring S/P DILATION Urinary incontinence Urinary leakage Surgical History History of ankle surgery RIGHT History of bilateral tubal ligation History of cataract surgery RIGHT/LEFT History of colonoscopy History of esophagogastroduodenoscopy (EGD) WITH DILATION History of repair of rotator cuff RIGHT History of tooth extraction Family History Father Alcoholism Alcohol drinking problem Cardiac disorder Myocardial infarction Mother Alcohol drinking problem COPD (chronic obstructive pulmonary disease) Hypertension Sister Lung disease Denies family history of Ovarian cancer Prostate cancer Breast cancer Colorectal cancer Social History Smoking Status: Never smoker Tobacco Type: Cigarettes Age Started Using Tobacco: 14; Age Quit Using Tobacco: 46; Cigarettes Per Day: 20; Second Hand Exposure: Yes ( used to smoke ); Hx Alcohol Use: No Hx Substance Use: No Preferred Language: Yoruba Communication Ability: Effective Visual Impairment: No Limitations Hearing Ability: Normal Manager Office Required: No Beliefs That Will Affect Care: None marital status: Single Current Living Situation: Alone Current Living Situation Comment: is no longer living or around residence current occupational status: employed and retired current occupation: retired from working at [employer], 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 [employer] How many Children do You have: 3 Feels Safe at Home: Yes Childhood Exposure to Second-Hand Smoke: No Dental Care, Regularly: No Physical Activity Frequency: Does not Exercise Physical Activity Frequency Comment: Exercise limited by physical condition Seatbelt Use: sometimes Sunscreen Use: No Assistive Devices: Glasses Review of Systems Review of Systems: All systems reviewed & are unremarkable except as noted in HPI & below Physical Exam Physical Exam: General: patient resting comfortably, NAD, non-toxic in appearance, AA&O x 4 HEENT: NC/AT, PERRL, EOMI, anicteric sclera, conjunctiva without injection, external ear normal to inspection and nontender, nares patent, moist mucus membranes, dentition intact, no oropharyngeal lesions, neck supple, trachea midline, no LAD, no thyromegaly, no JVD Heart: +S1/S2, regular, no m/r/g Lungs: equal air entry bilaterally, no rales/rhonchi/wheezes Abd: +BS, soft, NT/ND, no masses/organomegaly/ascites Ext: warm, 2+ pulses in UE/LE bilaterally, no clubbing/cyanosis or edema Neuro: nonfocal, patient AA&O x 4, speech intact, no facial droop, moving all extremities on command with equal strength 5/5 Swelling noted on right labia with small amount of serosanguinous drainage No crepitus, bullae Perineum exquisitely tender Patient having some difficulty with ambulation due to discomfort No abdominal pain Results & Data Results & Data ([facility]) Vital Signs (Past 12 Hours) Vital Signs Temp Pulse Pulse Resp BP BP Pulse Ox 05/24/21 22:00 87 20 145/79 H 96 05/24/21 20:32 97 H 18 181/95 H 97 05/24/21 19:00 36.8 C 82 18 160/88 H 92 Laboratory Results Laboratory Results WBC 10.05 K/uL (4.8-10.8) 05/24/21 22:08 RBC 4.78 M/uL (4.2-5.4) 05/24/21 22:08 Hgb 13.3 g/dL (12.0-16.0) 05/24/21 22:08 Hct 41.7 % (37-47) 05/24/21 22:08 MCV 87.2 fL (80-100) 05/24/21 22:08 MCH 27.8 pg (25-34) 05/24/21 22:08 MCHC 31.9 g/dL (32-36) L 05/24/21 22:08 RDW Std Deviation 46.5 fL (36.4-46.3) H 05/24/21 22:08 RDW Coeff of Levar 14.5 % (11.5-14.5) 05/24/21 22:08 Plt Count 251 K/uL (130-400) 05/24/21 22:08 MPV 10.9 fL (7.4-10.4) H 05/24/21 22:08 Immature Gran % (Auto) 0.2 % 05/24/21 22:08 Neut % (Auto) 62.6 % 05/24/21 22:08 Lymph % (Auto) 29.3 % 05/24/21 22:08 Josephine % (Auto) 6.3 % 05/24/21 22:08 Eos % (Auto) 1.2 % 05/24/21 22:08 Baso % (Auto) 0.4 % 05/24/21 22:08 Neut # (Auto) 6.30 K/uL (1.4-6.5) 05/24/21 22:08 Lymph # (Auto) 2.94 K/uL (1.2-3.4) 05/24/21 22:08 Josephine # (Auto) 0.63 K/uL (0.11-0.59) H 05/24/21 22:08 Eos # (Auto) 0.12 K/uL (0-0.5) 05/24/21 22:08 Baso # (Auto) 0.04 K/uL (0-0.2) 05/24/21 22:08 Immature Gran # (Auto) 0.02 K/uL (0.00-0.02) 05/24/21 22:08 ESR 22 mm/hr (0-30) 05/24/21 22:08 Sodium 138 mmol/L (136-145) 05/24/21 22:08 Potassium 3.7 mmol/L (3.5-5.1) 05/24/21 22:08 Chloride 105 mmol/L (98-107) 05/24/21 22:08 Carbon Dioxide 24 mmol/L (21-32) 05/24/21 22:08 Anion Gap 9 (3-11) 05/24/21 22:08 BUN 16 mg/dl (6-23) 05/24/21 22:08 Creatinine 0.70 mg/dl (0.6-1.2) 05/24/21 22:08 Est Cr Clr Drug Dosing 75.9 ml/min 05/24/21 22:08 Est GFR ( Amer) 103.2 ml/min 05/24/21 22:08 Est GFR (Non-Af Amer) 89.0 ml/min 05/24/21 22:08 BUN/Creatinine Ratio 22.9 (10-20) H 05/24/21 22:08 Glucose 104 mg/dl (70-99(Fasting)) H 05/24/21 22:08 Lactate 0.9 mmol/L (0.4-2.0) 05/24/21 22:08 Calcium 9.2 mg/dl (8.5-10.1) 05/24/21 22:08 Total Bilirubin 0.4 mg/dl (0.2-1.0) 05/24/21 22:08 AST 17 U/L (13-39) 05/24/21 22:08 ALT 15 U/L (7-52) 05/24/21 22:08 Alkaline Phosphatase 61 U/L (34-104) 05/24/21 22:08 C-Reactive Protein 1.17 mg/dl (0-0.5) H 05/24/21 22:08 Total Protein 7.2 gm/dl (6.0-8.3) 05/24/21 22:08 Albumin 4.1 gm/dl (3.4-5.0) 05/24/21 22:08 Globulin 3.1 gm/dl (2.5-4.0) 05/24/21 22:08 Albumin/Globulin Ratio 1.3 (0.9-2) 05/24/21 22:08 Procalcitonin < 0.05 ng/ml (0-0.5) 05/24/21 22:15 SARS-CoV-2, RNA, NAAT NEGATIVE (NEGATIVE) 05/24/21 22:27 Code Status & VTE Plan VTE Prophylaxis Plan VTE Prophylaxis will be ordered: Yes PG Care Time/CCT Total # of Minutes Spent Total Time Spent with Patient: Total time spent is greater than 50% in coordination of care (as documented) at patient's floor/unit and/or counseling patient: Coding Level of Care Code INT OBSERVATION CARE 50M LVL 2 Diagnoses Cellulitis of perineum L03.315 COPD with emphysema J43.9 GERD (gastroesophageal reflux disease) K21.9
[2021-05-25] MEDS ORDERED: PIPERACILL/TAZOBAC CONSULT ACTIVE PRN (02:13)
[2021-05-25] MEDS ORDERED: ONDANSETRON INJ 2 MG/ML 2 ML VIAL IV PRN (02:13)
[2021-05-25] MEDS ORDERED: PIPERACILLIN/TAZOBACTAM 3.375 GM in DEXTROSE 5% 100 ML IV SCH (02:13)
[2021-05-25] MEDS ORDERED: ACETAMINOPHEN 325 MG TAB PO PRN (02:13)
[2021-05-25] MEDS: PIPERACILLIN/TAZOBACTAM 4.5 GM in DEXTROSE 5% 100 ML IV SCH ×3 (03:53→20:06)
[2021-05-25] MEDS: DAPTOmycin 250 MG in SYRINGE 0 ML IV SCH (04:00)
--- NOTE | 2021-05-25 08:17 | CT Scan Report ---
CT SCAN OF THE PELVIS WITH IV CONTRAST CLINICAL HISTORY: Right labial/buttock infection. COMPARISON STUDY: Pelvic radiograph dated 11/08/2018. TECHNIQUE: Following the IV administration of 93 cc of Optiray 320, CT scan of the pelvis is performe d from the pelvic inlet to the proximal femora. Images are reviewed in the axial, sagittal, and coron al planes. IV contrast was administered without complication. A dose lowering technique was utilized adhering to the principles of ALARA. CT DOSE: 1068.10 mGy.cm FINDINGS: The bladder, uterus, and adnexa are normal as visualized. No intraperitoneal free air or free fluid i s seen in the pelvis. The imaged bowel loops show no evidence of obstruction. There is no pelvic side wall or inguinal adenopathy. The perianal soft tissues are normal in appearance. The skeletal structures are osteopenic. The bony pelvis appears intact. No lytic or blastic lesion is seen. Sclerotic change is noted in the pubic symphysis. The regional musculature is normal and symme tric. There is soft tissue infiltration identified in the right aspect of the labia and perineum. No organized fluid collection is seen to indicate abscess. No soft tissue gas is identified. IMPRESSION: 1. There is soft tissue induration within the right aspect of the labia and perineum typical for cell ulitis. Clinical correlation will be required. 2. No organized fluid collection is seen to indicate abscess. 3. Pelvic viscera is normal as imaged. ACT 112: Negative or not required by law. Dictated: 05/25/2021 8:04 AM Transcribed: 05/25/2021 8:13 AM Lisa [id number] [email or web address]_Homa Electronically signed by: Campbell Gillette M.D. 05/25/2021 8:16 AM
[2021-05-25] MEDS: CITALOPRAM 20 MG TAB PO SCH (08:29)
[2021-05-25] MEDS: MELOXICAM 7.5 MG TAB PO SCH (08:29)
[2021-05-25] MEDS: FLUTICASONE PROPIONATE NA SPR 16 GM BTL SCH (08:29)
--- NOTE | 2021-05-25 13:16 | OB/GYN Consultation ---
Date of Consultation May 25, 2021 History of Present Illness Reason for Consultation: right labial cellulitis Attending Physician: Supa Alejandra History of Present Illness Patient is a 66-year-old 3 para 3-0-0-3 white female who presented to the emergency room yesterday with increasing pain in the lRight labia. She denies any recent scratches or cuts in the skin in that area. She does not shave the perineal area. She denies any drainage at this time, however about 4 days ago she noted a pimple in the right crural fold just above the area that is painful now. She squeezed the pimple and expressed a small amount of white material. Since then the pain has increased and is now expanded to include the area below the initial lesion. She has noted no other drainage from the area. She denies any fever or chills and denies any vaginal discharge or bleeding. CT scan done on admission shows no evidence of a perineal abscess at this time. Of note, she had a MRSA infection involving an abscess on her upper back in August 2020. This abscess had to be opened and drained and packed. She had complete resolution of that abscess. 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 She has had 3 vaginal deliveries without complications. Pap smears have been normal although it has been several years since she has had a Pap smear. Menopause had been uneventful. She has had some difficulty with stress urinary incontinence for which she had a urethral sling placed in 2018. She still has some urinary incontinence but it appears to be urgency type incontinence because Myrbetriq is very effective. She does not take it regularly however because the prescription is $400. On exam, the left labia majora is normal without evidence of redness induration or tenderness. The right labia majora is indurated and erythematous involving the inferior portion of the labia extending to the fourchette. There is point tenderness and a small amount of serosanguineous drainage below the original lesion that she expressed several days ago.It looks like this area may be trying to open spontaneously. A culture of the drainage was obtained. The rest the pelvic exam has been deferred because of patient's discomfort. At this point there is nothing to drain as no abscess can be identified on CT scan. I would continue with the Zosyn and daptomycin as ordered pending the labial culture results. It may be helpful to repeat the CT scan in 48 hours if she is not beginning to feel better to reassess for abscess formation. For patient's comfort we will try to obtain a K pad for her to use in the tender area as needed. We will follow along with you and will reassess her in the morning to see if there is any visible improvement. Allergies Allergy/AdvReac Type Severity Reaction Status Date / Time morphine Allergy Intermediate SWELLING Verified 05/24/21 20:30 OF THROAT, RED RASH Home Medications Medication Instructions Recorded Confirmed Type citalopram 20 mg tablet (Celexa) 20 mg PO DAILY #90 tab 06/22/20 05/24/21 Rx montelukast 10 mg tablet 10 mg PO QPM #90 tab 06/22/20 05/24/21 Rx meloxicam 7.5 mg tablet 7.5 mg PO DAILY #90 tab 09/28/20 05/24/21 Rx fluticasone propionate 50 2 spray INTNAS DAILY #15.8 ml 12/14/20 05/24/21 Rx mcg/actuation nasal spray,suspension triamcinolone acetonide 0.1 % 1 applic TOPICAL BID PRN #30 g 12/28/20 05/24/21 Rx topical cream omeprazole 20 mg capsule,delayed 20 mg PO QAM #90 cap 12/29/20 05/24/21 Rx release metformin 500 mg tablet 500 mg PO BID #60 tab 04/23/21 05/24/21 Rx Patient History Medical History (Updated 05/24/21 @ 23:45 by Sara Mcmanus PA-C) Allergic rhinitis Anxiety Asthma Chronic obstructive pulmonary disease Spiriva daily, very rare albuterol use, usually just with muggy weather Current smoker Degenerative disc disease Depression Encounter for immunization Former smoker quit 2002 GERD (gastroesophageal reflux disease) Hiatal hernia Migraine HX 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 (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, 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[facility] Osteoarthritis Pulmonary emphysema Schatzki's ring S/P DILATION Urinary incontinence Urinary leakage Surgical History History of ankle surgery RIGHT History of bilateral tubal ligation History of cataract surgery RIGHT/LEFT History of colonoscopy History of esophagogastroduodenoscopy (EGD) WITH DILATION History of repair of rotator cuff RIGHT History of tooth extraction Family History Father Alcoholism Alcohol drinking problem Cardiac disorder Myocardial infarction Mother Alcohol drinking problem COPD (chronic obstructive pulmonary disease) Hypertension Sister Lung disease Denies family history of Ovarian cancer Prostate cancer Breast cancer Colorectal cancer Social History Smoking Status: Former smoker Tobacco Type: Cigarettes Age Started Using Tobacco: 14; Age Quit Using Tobacco: 46; Cigarettes Per Day: 20; Second Hand Exposure: No; Hx Alcohol Use: No Hx Substance Use: No Preferred Language: French Communication Ability: Effective Visual Impairment: No Limitations Hearing Ability: Normal Numerical Control Operator Required: No Beliefs That Will Affect Care: None marital status: Single Current Living Situation: Family Current Living Situation Comment: grandson and granddaughter current occupational status: employed and retired current occupation: retired from working at [employer], 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 [employer] How many Children do You have: 3 Feels Safe at Home: Yes Childhood Exposure to Second-Hand Smoke: No Dental Care, Regularly: No Physical Activity Frequency: Does not Exercise Physical Activity Frequency Comment: Exercise limited by physical condition Seatbelt Use: sometimes Sunscreen Use: No Assistive Devices: None Results & Data ([facility]) Vital Signs (Past 12 Hours) Vital Signs Temp Pulse Pulse Resp BP Pulse Ox 05/25/21 07:30 97.5 F L 68 16 127/75 99 05/25/21 03:28 82 21 96 05/25/21 02:14 97.9 F 73 16 153/90 H 95 PG Care Time/CCT Total # of Minutes Spent Total Time Spent with Patient: Total time spent is greater than 50% in coordination of care (as documented) at patient's floor/unit and/or counseling patient: Coding Level of Care Code 98375 Inpt Consult Level 3
[2021-05-25] MEDS: MONTELUKAST SODIUM 10 MG TABLET PO SCH (20:05)
[2021-05-26] MEDS: PIPERACILLIN/TAZOBACTAM 4.5 GM in DEXTROSE 5% 100 ML IV SCH ×3 (04:04→21:00)
[2021-05-26] MEDS: DAPTOmycin 250 MG in SYRINGE 0 ML IV SCH (04:05)
[2021-05-26 06:29] LABS: Basophils # (auto) 0.03 K/uL (0-0.2); Basophils % (auto) 0.5 %; Eosinophils # (auto) 0.12 K/uL (0-0.5); Hematocrit (blood only) 40.9 % (37-47); Hemoglobin 13.1 g/dL (12.0-16.0); Immature Granulocytes # (auto) 0.01 K/uL (0.00-0.02); Immature Granulocytes % (auto) 0.2 %; Lymphocytes # (auto) 2.23 K/uL (1.2-3.4); Lymphocytes % (auto) 36.5 %; Mean Corpuscular Hemoglobin 28.3 pg (25-34); Mean Corpuscular Volume 88.3 fL (80-100); Mean Platelet Volume 10.9 fL (7.4-10.4); Monocytes # (auto) 0.47 K/uL (0.11-0.59); Monocytes % (auto) 7.7 %; Neutrophils # (auto) 3.25 K/uL (1.4-6.5); Neutrophils % (auto) 53.1 %; Platelet Count 234 K/uL (130-400); RDW Coefficient of Variation 14.6 % (11.5-14.5); RDW Standard Deviation 47.2 fL (36.4-46.3); Red Blood Count 4.63 M/uL (4.2-5.4); White Blood Count 6.11 K/uL (4.8-10.8)
--- NOTE | 2021-05-26 06:40 | Gynecologic Progress Note ---
Date of Service May 26, 2021 Assessment & Plan (1) Cellulitis of labia: Plan: cellulitis improving on current antibiotic regimen. would continue for at least 48 hours of IV antbiotics and discharge on oral antibiotic for total of 10 days of antibiotic labial culture is still pending. Admission and Anticipated Discharge Date Admission Date: May 25, 2021 Subjective feeling better now- much less pain. has had some drainage from the area . Review of Systems Review of Systems: All systems reviewed & are unremarkable except as noted in HPI & below Physical Exam Constitutional: WD/WN, vitals as above Psychiatric: A+Ox3, euthymic affect Genitourinary: right labia less indurated and less tender erythema also dec reased Results & Data ([facility]) Vital Signs (Past 12 Hours) Vital Signs Temp Pulse Pulse Resp BP Pulse Ox 05/26/21 03:05 68 12 95 05/25/21 21:49 84 16 95 05/25/21 21:42 97.3 F L 85 16 100/54 L 94 PG Care Time/CCT Total # of Minutes Spent Total Time Spent with Patient: Total time spent is greater than 50% in coordination of care (as documented) at patient's floor/unit and/or counseling patient: Coding Level of Care Code 80343 Office/OBS Consult Lvl 2 Diagnoses Cellulitis of labia N76.2
[2021-05-26 06:46] LABS: Calcium 8.7 mg/dl (8.5-10.1); Creatinine Clr Calc Pharmacy 55.8 ml/min; Est GFR (African American) 71.3 ml/min; Est GFR (Non-African American) 61.5 ml/min; Potassium 4.2 mmol/L (3.5-5.1)
[2021-05-26] MEDS: CITALOPRAM 20 MG TAB PO SCH (07:46)
[2021-05-26] MEDS: FLUTICASONE PROPIONATE NA SPR 16 GM BTL SCH (07:46)
[2021-05-26] MEDS: MELOXICAM 7.5 MG TAB PO SCH (07:46)
[2021-05-26] MEDS: PANTOprazole 40 MG TAB PO SCH (11:51)
--- NOTE | 2021-05-26 20:42 | Hospitalist Progress Note ---
Date of Service May 26, 2021 Assessment & Plan (1) Cellulitis of perineum: Plan: Patient afebrile, HD stable, nontoxic in appearance. CT suggestive of cellulitis and stranding. No drainable collection. -Zosyn, Daptomycin -Warm compresses -Patient will continue on current antibiotics. -will admit patient. plan is to discharge tomorrow on oral antibiotics (2) COPD with emphysema: Plan: Chronic. Stable -Continue Singulair (3) GERD (gastroesophageal reflux disease): Plan: Chronic. Stable -Continue Omeprazole Admission and Anticipated Discharge Date Admission Date: May 25, 2021 Subjective Patient reports mild improvement today. Patient notices discharge and decrease in size of swelling of her right labia majora. Review of Systems Review of Systems: All systems reviewed & are unremarkable except as noted in HPI & below Physical Exam Physical Exam: General: NAD, non-toxic in appearance, AA&O x 4 HEENT: NC/AT, PERRL, EOMI, anicteric sclera, conjunctiva without injection, external ear normal to inspection and nontender, nares patent, moist mucus membranes, dentition intact, no oropharyngeal lesions, neck supple, trachea midline, no LAD, no thyromegaly, no JVD Heart: +S1/S2, regular, no m/r/g Lungs: equal air entry bilaterally, no rales/rhonchi/wheezes Abd: +BS, soft, NT/ND, no masses/organomegaly/ascites Ext: warm, 2+ pulses in UE/LE bilaterally, no clubbing/cyanosis or edema Neuro: nonfocal, patient AA&O x 4, speech intact, no facial droop, moving all extremities on command with equal strength 5/5 Decreased swelling noted on right labia, No crepitus, bullae, decreased tenderness Patient having some difficulty with ambulation due to discomfort No abdominal pain Results & Data Results & Data ([facility]) Vital Signs (Past 12 Hours) Vital Signs Temp Pulse Resp BP Pulse Ox 05/26/21 15:30 36.6 C 68 16 131/74 96 PG Care Time/CCT Total # of Minutes Spent Total Time Spent with Patient: Total time spent is greater than 50% in coordination of care (as documented) at patient's floor/unit and/or counseling patient: Coding Level of Care Code 01334 Subseq Hosp Care Lvl 2 Diagnoses Cellulitis of perineum L03.315 COPD with emphysema J43.9 GERD (gastroesophageal reflux disease) K21.9
[2021-05-26] MEDS: MONTELUKAST SODIUM 10 MG TABLET PO SCH (21:03)
[2021-05-27] MEDS: PIPERACILLIN/TAZOBACTAM 4.5 GM in DEXTROSE 5% 100 ML IV SCH ×2 (03:31→12:27)
[2021-05-27] MEDS: DAPTOmycin 250 MG in SYRINGE 0 ML IV SCH (03:32)
[2021-05-27 06:23] LABS: Hematocrit (blood only) 39.2 % (37-47); Mean Corpuscular Hemoglobin 28.6 pg (25-34); Mean Corpuscular Hgb Conc 33.2 g/dL (32-36); Mean Corpuscular Volume 86.2 fL (80-100); Mean Platelet Volume 10.8 fL (7.4-10.4); Platelet Count 247 K/uL (130-400); RDW Coefficient of Variation 14.6 % (11.5-14.5); RDW Standard Deviation 46.2 fL (36.4-46.3); Red Blood Count 4.55 M/uL (4.2-5.4); White Blood Count 5.77 K/uL (4.8-10.8)
[2021-05-27 06:44] LABS: BUN Creatinine Ratio 25.4 (10-20); Calcium 8.8 mg/dl (8.5-10.1); Creatinine Clr Calc Pharmacy 79.1 ml/min; Est GFR (African American) 104.7 ml/min; Est GFR (Non-African American) 90.3 ml/min; Potassium 3.9 mmol/L (3.5-5.1)
--- NOTE | 2021-05-27 07:26 | Gynecologic Progress Note ---
Date of Service May 27, 2021 Assessment & Plan (1) Cellulitis of labia: Plan: cellulitis improving on current antibiotic regimen. would continue for at least 48 hours of IV antbiotics and discharge on oral antibiotic for total of 10 days of antibiotic labial culture is still pending. I do not see any redness on the exam today I will point out there is an area of tenderness on the right labia posteriorly however this is more consistent with induration I do think the patient probably could go home at this stage the cultures come back as Staphylococcus and I would consider Keflex oral for 10 days to be reasonable please contact us if you have any concerns Admission and Anticipated Discharge Date Admission Date: May 26, 2021 [facility] Vital Signs (Past 12 Hours) Vital Signs Temp Pulse Pulse Resp BP Pulse Ox 05/27/21 03:22 76 16 96 05/26/21 23:52 97.2 F L 89 18 130/69 96 05/26/21 22:20 81 14 96 PG Care Time/CCT Total # of Minutes Spent Total Time Spent with Patient: Total time spent is greater than 50% in coordination of care (as documented) at patient's floor/unit and/or counseling patient: Coding Level of Care Code 07679 Subseq Hosp Care Lvl 2 Diagnoses Cellulitis of labia N76.2
[2021-05-27] MEDS: CITALOPRAM 20 MG TAB PO SCH (09:08)
[2021-05-27] MEDS: FLUTICASONE PROPIONATE NA SPR 16 GM BTL SCH (09:08)
[2021-05-27] MEDS: PANTOprazole 40 MG TAB PO SCH (09:08)
[2021-05-27] MEDS: MELOXICAM 7.5 MG TAB PO SCH (09:08)
--- NOTE | 2021-05-29 07:00 | Discharge Summary ---
Date of Service May 27, 2021 Admission HPI Per Admitting Provider Caroline So is a pleasant 66yo female with history of COPD/Asthma and GERD presenting with painful lump on right labia. Patient noted the lump about 3-4 days ago. She states it feels larger and more tender. No drainage. No fever, chills, sweats, rigors, abdominal pain, nausea, vomiting, diarrhea or constipation. No additional complaints at this time. The swelling rubs against patient's clothes and causes severe pain. Afebrile, HD stable in ER. Principal Diagnosis noted in problem 1 Discharge Exam General: NAD, non-toxic in appearance, AA&O x 4 HEENT: NC/AT, PERRL, EOMI, anicteric sclera, conjunctiva without injection, external ear normal to inspection and nontender, nares patent, moist mucus mem branes, dentition intact, no oropharyngeal lesions, neck supple, trachea midline, no LAD, no thyromegaly, no JVD Heart: +S1/S2, regular, no m/r/g Lungs: equal air entry bilaterally, no rales/rhonchi/wheezes Abd: +BS, soft, NT/ND, no masses/organomegaly/ascites Ext: warm, 2+ pulses in UE/LE bilaterally, no clubbing/cyanosis or edema Neuro: nonfocal, patient AA&O x 4, speech intact, no facial droop, moving all extremities on command with equal strength 5/5 minimal swelling noted on right labia, No crepitus, bullae, mild tenderness (improved) to palpation, area of tenderness has decreased significantly in size Patient having some difficulty with ambulation due to discomfort No abdominal pain Discharge Data Allergies Allergy/AdvReac Type Severity Reaction Status Date / Time morphine Allergy Intermediate SWELLING Verified 05/24/21 20:30 OF THROAT, RED RASH Consultations 05/24/21 23:27 ED Decision to Admit Stat 05/25/21 11:12 Consult Gynecology Routine Ordered Studies 05/24/21 21:54 CT pelvis w/IV con only Urgent Hospital Course (1) Cellulitis of perineum: Patient afebrile, HD stable, nontoxic in appearance. CT suggestive of cellulitis and stranding. No drainable collection. -Patient was treated with Zosyn, Daptomycin -Tolerated Warm compresses and noticed some drainage. -Lesion was bipsided, anc cultured. -grew MRSA, sensitive to bactrim. -inflammation decreased during hospital stay. -will coplete 10 more days of bactrim 1 tab DS BID -patient is agreeable to plan (2) COPD with emphysema: Chronic. Stable -Continue Singulair (3) GERD (gastroesophageal reflux disease): Chronic. Stable -Continue Omeprazole Total Time Total Time Spent Total Time Spent (In Minutes): 32 Discharge Plan Discharge Items Patient Disposition: Home - Self-Care Reason For Visit: PERINEAL PAIN Discharge Diagnosis: perineal pain Condition on Discharge: Good Activity: Resume your previous activity Non-emergency contact: Primary Care Provider Call non-emergency contact if: you have any medication questions Follow-up/Referrals: Zheng Brown MD [Primary Care Provider] - 06/01/21 3:00 pm Diet: Regular Addtl Attending Provider Instructions: You were found to have a soft tissue infection. You were treated with antibiotics. Thankfully you responded to the treatment and we were able to obtain a culture. You will continue on bactrim for 10 more days. Please start first dose tonight. Continue warm compresses to painful area for up to 20 minutes at a time. Pending Studies at Discharge: No Stand-Alone Forms: My [facility] [place], Work/School Release, Smoking Cessation Medications and DC Order Prescriptions: New sulfamethoxazole-trimethoprim [Bactrim DS] 800-160 mg tablet 1 tab PO Q12H 10 Days Qty: 20 RF: 0 Continued meloxicam 7.5 mg tablet 7.5 mg PO DAILY Qty: 90 RF: 3 fluticasone propionate 50 mcg/actuation spray,suspension 2 spray INTNAS DAILY Qty: 15.8 RF: 2 omeprazole 20 mg capsule,delayed release(DR/EC) 20 mg PO QAM Qty: 90 RF: 3 metformin 500 mg tablet 500 mg PO BID Qty: 60 RF: 5 triamcinolone acetonide 0.1 % cream 1 applic topical BID PRN (Reason: rash) Qty: 30 RF: 2 citalopram [Celexa] 20 mg tablet 20 mg PO DAILY Qty: 90 RF: 3 montelukast 10 mg tablet 10 mg PO QPM Qty: 90 RF: 3 Discharge Orders: Discharge Order (Routine); Ordered 05/27/21 Ordered By: Supa Williamson/Other Patient Handouts: Sulfamethoxazole/Trimethoprim DS Oral Tablet 800 mg/160 mg Admission Data Admit Date/Time: 05/26/21 20:42 Attending Provider: Supa Alejandra Admit Provider: Vee Fleming Primary Care Provider: Zheng Brown Other Providers: Vee Fleming ; Lexus Loera ; Dillon Ferris ; Brooklynn Perez ; Breanna Schilling ; Carol Wallace ; Mark Garcia ; Pooja May ; Mahendra Odell ; Ann Beckett ; Casie Knox ; Luke Bernstein Other Interventions: Discharge Summary Assessment (RN) Last Done: 05/27/21 13:48 Coding Level of Care Code D/C DAY MANAGEMENT >30 MINS Diagnoses Cellulitis of perineum L03.315 COPD with emphysema J43.9 GERD (gastroesophageal reflux disease) K21.9
== END 2021-05-27 14:23 | disposition home or self-care (01) | DRG 603 ==
LOC: ED 18:56 → 3E 18:56 → SUATTDRO 05-25 00:06 → 3E 05-25 02:21